=== PATIENT | female | born 1945 | race African-American/Black ===

== ENCOUNTER 2021-07-18 17:15 | Emergency (ER) | payer OTHER ==
--- OUTSIDE RECORDS SUMMARY | 2021-07-18 17:18 | XMS REPORT | Continuity of Care Document ---
:1945 Author Organization [facility] t Address [address] Azar [address] [place] [address] Care Team Providers Name Role Phone Unavailable Unavailable Unavailable Payers Payer Name Policy Type Policy Number Effective Date Expiration Date S [facility] [id number] 2021 (MEDICARE 00:00:00 REPLACEMENT HMO) Problems This patient has no known problems. Allergies, Adverse Reactions, Alerts This patient has no known allergies or adverse reactions. Medications This patient has no known medications. Procedures This patient has no known procedures. Encounters Start End Encounter Admission Attending Care Care Encounter Source Date/Time Date/Time Type Type Clinicians Facility Department ID 2021-05-19 2021-05-19 Outpatient [facility] [id number] [facility] 12:01:00 12:01:00 1207 [facility] Results This patient has no known results.
[2021-07-18] MEDS ORDERED: NA CHLORIDE 0.9% 500 ML ONE (18:13)
[2021-07-18 18:22] LABS: Urine Blood Negative (Negative); Urine Glucose Negative (Negative); Urine Protein Negative (Negative); Urine Specific Gravity >=1.030 (1.005-1.030); Urine pH 5.5 (5.0-7.0)
[2021-07-18 18:27] LABS: Absolute Lymphocytes (CBC) 1.2 K/uL (0.7-4.9); Lymphocytes % 16.4 % (15.3-44.8); MPV 8.2 fL (7.6-11.3)
[2021-07-18 18:44] LABS: Urine Bacteria <20 /HPF (<20); Urine Mucus 1+ /HPF (NONE SEEN); Urine RBC <5 /HPF (NONE SEEN)
[2021-07-18 18:45] LABS: ALT/SGPT 25 U/L (12-78); AST/SGOT 14 U/L (15-37); Albumin 3.5 g/dL (3.4-5.0); Alkaline Phosphatase 112 U/L (45-117); BUN Blood Urea Nitrogen 22 mg/dL (7-18); Bicarbonate 27 mmol/L (21-32); Bilirubin Direct < 0.1 mg/dL (0-0.2); Bilirubin Total 0.3 mg/dL (0.2-1.0); Glucose Level 189 mg/dL (74-106); Lipase 55 U/L (73-393); Protein, Total 7.7 g/dL (6.4-8.2); Sodium Level 139 mmol/L (136-145)
--- NOTE | 2021-07-18 19:35 | RAD REPORT ---
EXAM DESCRIPTION: CT - Abdomen Pelvis W Contrast - 07/18/2021 7:14 pm CLINICAL HISTORY: Abdominal pain/right groin pain COMPARISON: none. TECHNIQUE: Computed axial tomography of the abdomen pelvis was obtained. 100 cc Isovue-300 was admin istered intravenously. Oral contrast was not requested which limits evaluation of bowel. All CT scans are performed using dose optimization technique as appropriate and may include automated exposure control or mA/KV adjustment according to patient size. FINDINGS: Fatty liver. Small hepatic cysts. The spleen, pancreas, adrenals and left kidney are unremarkable. 27 millimeter right renal cyst There is no evidence of diverticulitis. Done stasis rectus abdominis muscles 7.3 centimeters. Small umbilical hernia. Hysterectomy. No adnexal mass. Inguinal hernia is not seen IMPRESSION: No acute abnormality is displayed.
[2021-07-18] MEDS ORDERED: KETOROLAC 30 MG/ML INJ ONE (19:58)
--- NOTE | 2021-07-18 20:14 | EDPHYS ---
Physician Documentation [facility] Name: Adore Padilla Age: 76 yrs Sex: Female : 1945 Arrival Date: 07/18/2021 Time: 17:22 Bed 19 Private MD: ED Physician Michele Franco HPI: 07/18 18:05 This 76 yrs old Black Female presents to ER via EMS with complaints of Pain With cp Urination. 18:05 The patient presents with urinary symptoms, frequency. cp 18:05 Onset: The symptoms/episode began/occurred today. Associated signs and symptoms: cp Pertinent positives: pain to right hip right groin, Pertinent negatives: dysuria, fever, hematuria, vomiting. Severity of symptoms: in the emergency department the symptoms are unchanged, despite home interventions. Family reported patient is altered to EMS. Historical: - Allergies: 17:23 No Known Allergies; mazariegos - Home Meds: 17:23 Unable to obtain [Active]; mazariegos - Immunization history:: Adult Immunizations up to date. - Social history:: Smoking status: Patient denies any tobacco usage or history of. ROS: 18:10 : Positive for urinary frequency, Negative for burning with urination. cp 18:10 Constitutional: Negative for body aches, chills, fever, poor PO intake. cp 18:10 Respiratory: Negative for cough, shortness of breath, wheezing. 18:10 Abdomen/GI: Negative for abdominal pain. 18:10 Back: Negative for pain at rest, pain with movement. 18:10 MS/extremity: Positive for pain, of the right groin, Negative for injury or acute deformity, decreased range of motion, paresthesias. 18:10 Neuro: Negative for altered mental status, headache, weakness. 18:10 All other systems are negative. Exam: 18:15 Constitutional: The patient appears in no acute distress, alert, awake, cp non-diaphoretic, non-toxic, well developed, well nourished, obese. 18:15 Head/Face: Normocephalic, atraumatic. cp 18:15 Eyes: Periorbital structures: appear normal, Conjunctiva: normal, no exudate, no cp injection, Sclera: no appreciated abnormality, Lids and lashes: appear normal, bilaterally. 18:15 ENT: External ear(s): are unremarkable, Nose: is normal, Mouth: Lips: moist, Oral cp mucosa: moist, Posterior pharynx: Airway: no evidence of obstruction, patent. 18:15 Chest/axilla: Inspection: normal. 18:15 Cardiovascular: Rate: tachycardic, Rhythm: regular, Edema: is not appreciated, JVD: is not appreciated. 18:15 Respiratory: the patient does not display signs of respiratory distress, Respirations: normal, no use of accessory muscles, no retractions, labored breathing, is not present, Breath sounds: are clear throughout, no decreased breath sounds. 18:15 Abdomen/GI: Inspection: abdomen appears normal, Bowel sounds: active, all quadrants, Palpation: soft, in all quadrants, nontender, in all quadrants. 18:15 Back: pain, is absent, ROM is normal. 18:15 Musculoskeletal/extremity: Extremities: grossly normal except: noted in the right groin and right hip: pain, tenderness, There is no evidence of decreased ROM, deformity, swelling, ROM: full passive range of motion, in the right hip, Perfusion: the extremity is normally perfused throughout, Calf tenderness, is absent, the right leg Sensation intact. 18:15 Neuro: Orientation: to person, place \T\ time. Mentation: is normal, Motor: moves all fours, strength is normal, Sensation: is normal. 18:57 ECG was reviewed by the Attending Physician. Vital Signs: 17:22 BP 191 / 101; Pulse 112; Resp 18; Temp 97.9(O); Pulse Ox 100% on R/A; Weight 81.65 kg; mazariegos Height 5 ft. 2 in. (157.48 cm); 20:00 BP 160 / 78; Pulse 78; Resp 16; Temp 97.5; Pulse Ox 97% on R/A; Pain 0/10; meño 20:49 BP 162 / 80; Pulse 76; Resp 16; Temp 97.2; Pulse Ox 99% on R/A; Pain 0/10; meño 17:22 Body Mass Index 32.92 (81.65 kg, 157.48 cm) mazariegos MDM: 17:54 Patient medically screened. cp 18:30 Differential diagnosis: appendicitis, Neoplasm nonspecific abdominal pain, ovarian cp cyst, urinary tract infection, colitis, kidney stone, hip fracture. 07/18 18:00 Order name: Basic Metabolic Panel; Complete Time: 18:56 cp 07/18 18:56 Interpretation: Normal except: GLUC 189; BUN 22; GFR 51. cp 02/ 18:00 Order name: CBC with Diff; Complete Time: 18:40 cp 02/ 18:40 Interpretation: Normal except: RBC 4.90; HGB 11.7; MCV 75.5; MCH 23.9; MCHC 31.6; RDW cp 15.6. 02/ 18:00 Order name: Hepatic Function; Complete Time: 18:56 cp 02 18:57 Interpretation: Normal except: AST 14; GLOB 4.2; A/G 0.8. cp 02/ 18:00 Order name: Lipase; Complete Time: 18:56 cp 02 18:00 Order name: Urine Microscopic Only; Complete Time: 18:56 cp 02 18:22 Order name: Urine Dipstick-Ancillary; Complete Time: 18:40 EDMS 02/ 18:00 Order name: IV Saline Lock; Complete Time: 18:23 cp 07/18 18:00 Order name: Labs collected and sent; Complete Time: 18:23 cp 07/18 18:00 Order name: Urine Dipstick-Ancillary (obtain specimen); Complete Time: 18:23 cp 02 18:02 Order name: EKG; Complete Time: 18:02 cp 02/ 18:41 Order name: CT Abd/Pelvis - IV Contrast Only; Complete Time: 20:08 cp 02/ 20:08 Interpretation: Report reviewed. cp 02/ 18:02 Order name: EKG - Nurse/Tech; Complete Time: 19:06 cp 02 19:54 Order name: Vital Signs; Complete Time: 19:59 cp EC:57 Rate is 106 beats/min. Rhythm is regular. [place] interval is normal. QRS interval is cp normal. QT interval is normal. Interpreted by me. Reviewed by me. Administered Medications: 18:22 Drug: NS 0.9% 250 ml Route: IV; Rate: 125 ml/hr; Site: right antecubital; mazariegos 20:49 Follow up: IV Status: Completed infusion; IV Intake: 250ml meño 18:23 Drug: NS 0.9% 250 ml Route: IV; Rate: bolus; Site: right antecubital; mazariegos 19:59 Drug: Ketorolac 15 mg Route: IVP; Site: right antecubital; meño 20:48 Follow up: Response: No adverse reaction meño Disposition: 07/19 06:55 Co-signature as Attending Physician, Michele Franco MD. rn Disposition Summary: 07/18/21 20:14 Discharge Ordered Location: Home cp Problem: new cp Symptoms: have improved cp Condition: Stable cp Diagnosis - Hyperglycemia, unspecified cp - Pain in right hip cp Followup: cp - With: Private Physician - When: 2 - 3 days - Reason: Recheck today's complaints Discharge Instructions: - Discharge Summary Sheet cp - Hyperglycemia cp - Hip Pain cp Forms: - Medication Reconciliation Form cp - Thank You Letter cp - Antibiotic Education cp - Prescription Opioid Use cp Prescriptions: - Mobic 7.5 mg Oral Tablet - take 1 tablet by ORAL route once daily take with food; 20 tablet; Refills: 0, cp Product Selection Permitted Signatures: Dispatcher [employer] EDMichele Borja MD MD rn Page, Corey, PA PA cp Elizabeth Jacques RN RN bo Au-Stager, Heather RN CHELLE mazariegos
--- NOTE | 2021-07-18 20:14 | ER ---
Nurse's Notes [facility] Name: Adore Padilla Age: 76 yrs Sex: Female : 1945 Arrival Date: 07/18/2021 Time: 17:22 Bed 19 Private MD: Diagnosis: Hyperglycemia, unspecified;Pain in right hip Presentation: 07/18 17:22 Chief complaint: Patient states: pain with urination and alter mental status. mazariegos Coronavirus screen: Vaccine status: Patient reports receiving the 2nd dose of the covid vaccine. Ebola Screen: Patient denies travel to an Ebola-affected area in the 21 days before illness onset. Initial Sepsis Screen: Does the patient meet any 2 criteria? No. Patient's initial sepsis screen is negative. Does the patient have a suspected source of infection? No. Patient's initial sepsis screen is negative. Risk Assessment: Do you want to hurt yourself or someone else? Patient reports no desire to harm self or others. Onset of symptoms was July 18, 2021. 17:22 Method Of Arrival: EMS: [facility] mazariegos 17:22 Acuity: KEYONNA 3 mazariegos Triage Assessment: 17:23 General: Appears in no apparent distress. Behavior is calm, cooperative. Pain: Denies mazariegos pain. Historical: - Allergies: 17:23 No Known Allergies; mazariegos - Home Meds: 17:23 Unable to obtain [Active]; mazariegos - Immunization history:: Adult Immunizations up to date. - Social history:: Smoking status: Patient denies any tobacco usage or history of. Screenin:24 Abuse screen: Denies threats or abuse. Denies injuries from another. Nutritional mazariegos screening: No deficits noted. Tuberculosis screening: No symptoms or risk factors identified. Fall Risk None identified. Assessment: 17:24 General: Appears in no apparent distress. Pain: Denies pain. Neuro:. : Reports mazariegos burning with urination. 19:06 Reassessment: I recv'd report on the pt in room 19. She is AAOx3 and reports she "feels meño fine". She was taken to CT, via w/c at 1900. Her brother is at bedside. 19:22 General: The pt has returned from CT. . meño 20:00 General: The pt reports that she was "never confused" and that her son called her from meño dialysis and she believes he was confused. She is in NAD and AAOx3. . Vital Signs: 17:22 BP 191 / 101; Pulse 112; Resp 18; Temp 97.9(O); Pulse Ox 100% on R/A; Weight 81.65 kg; mazariegos Height 5 ft. 2 in. (157.48 cm); 20:00 BP 160 / 78; Pulse 78; Resp 16; Temp 97.5; Pulse Ox 97% on R/A; Pain 0/10; meño 20:49 BP 162 / 80; Pulse 76; Resp 16; Temp 97.2; Pulse Ox 99% on R/A; Pain 0/10; meño 17:22 Body Mass Index 32.92 (81.65 kg, 157.48 cm) mazariegos ED Course: 17:22 Patient arrived in ED. mazariegos 17:23 Triage completed. mazariegos 17:23 Arm band placed on. mazariegos 17:24 Patient has correct armband on for positive identification. Bed in low position. mazariegos 17:24 No provider procedures requiring assistance completed. mazariegos 17:50 Alex Camp PA is PHCP. cp 17:50 Michele Franco MD is Attending Physician. cp 18:23 Basic Metabolic Panel Sent. mazariegos 18:23 CBC with Diff Sent. mazariegos 18:23 Hepatic Function Sent. mazariegos 18:23 Lipase Sent. mazariegos 18:23 Urine Microscopic Only Sent. mazariegos 19:06 Elizabeth Jacques, RN is Primary Nurse. meño 19:06 Elizabeth Jacques, RN is Primary Nurse. meño 19:16 CT Abd/Pelvis - IV Contrast Only In Process Unspecified. EDMS 20:50 intact, bleeding controlled, No redness/swelling at site. Pressure dressing applied. meño Administered Medications: 18:22 Drug: NS 0.9% 250 ml Route: IV; Rate: 125 ml/hr; Site: right antecubital; mazariegos 20:49 Follow up: IV Status: Completed infusion; IV Intake: 250ml meño 18:23 Drug: NS 0.9% 250 ml Route: IV; Rate: bolus; Site: right antecubital; mazariegos 19:59 Drug: Ketorolac 15 mg Route: IVP; Site: right antecubital; meño 20:48 Follow up: Response: No adverse reaction meño Intake: 20:49 IV: 250ml; Total: 250ml. meño Outcome: 19:22 Condition: stable meño 20:14 Discharge ordered by . cp 20:50 Discharged to home via wheelchair, taken to waiting area, as she is waiting on her meño family and asked to wait there. 20:51 Discharge instructions given to patient, Instructed on discharge instructions, meño medication usage, pt has taken mobic before and is familiar with dosing Demonstrated understanding of instructions, follow-up care, medications, Prescriptions given X 1. 20:51 Patient left the ED. meño Signatures: Dispatcher [employer] EDMS Alex Camp PA PA cp O'Farrell, Brenda, RN RN meño Au-StagerAnaly RN RN mazariegos
[2021-07-18 20:58] VITALS: BP 162/80; TEMP 97.2; O2SAT 99
--- NOTE | 2021-07-20 11:34 | EKG ---
Test Date: 2021-07-18 Test Time: 18:49:39 Neuropsychology Division Chief: KATHIE MEASUREMENT RESULTS: Intervals: Rate: 103 NE: 164 QRSD: 78 QT: 362 QTc: 474 [place]: P: 75 NE: 164 QRS: 17 T: 9 INTERPRETIVE STATEMENTS: Sinus tachycardia Possible Left atrial enlargement Left ventricular hypertrophy Nonspecific T wave abnormality Abnormal ECG Compared to ECG 01/06/2011 07:12:49 T-wave abnormality now present Sinus rhythm no longer present Electronically Signed On 07-20-21 11:30:38 WIG DRESSER by Jose Amin
== END 2021-07-18 20:51 | disposition home or self-care (01) ==
LOC: ER 17:15
DX: M25.551 Pain in right hip (principal); R73.9 Hyperglycemia, unspecified
CPT/HCPCS: 36415; 74177; 80048; 80076; 81003; 81015; 83690; 85025; 93005; 96365; 96366; 96375; 99284; J7040; Q9967

== ENCOUNTER 2021-07-19 11:19 | Inpatient (IN) | payer MEDICARE, OTHER ==
--- OUTSIDE RECORDS SUMMARY | 2021-07-19 11:21 | XMS REPORT | Continuity of Care Document ---
:1945 Author Organization [facility] t Address [address] Azar [address] [place] [id number] Care Team Providers Name Role Phone Unavailable Unavailable Unavailable Payers Payer Name Policy Type Policy Number Effective Date Expiration Date S [facility] [id number] 2021 (MEDICARE 00:00:00 REPLACEMENT HMO) Problems This patient has no known problems. Allergies, Adverse Reactions, Alerts This patient has no known allergies or adverse reactions. Medications This patient has no known medications. Procedures This patient has no known procedures. Encounters Start End Encounter Admission Attending Care Care Encounter Source Date/Time Date/Time Type Type Clinicians Facility Department ID 2021-05-19 2021-05-19 Outpatient [facility] [id number] [facility] 12:01:00 12:01:00 1207 [facility] Results This patient has no known results.
[2021-07-19] MEDS ORDERED: NA CHLORIDE 0.9% 500 ML ONE (11:39)
[2021-07-19 11:57] LABS: Absolute Lymphocytes (CBC) 0.6 K/uL (0.7-4.9); Hematocrit 35.3 % (36.0-45.0); Lymphocytes % 12.2 % (15.3-44.8); MPV 8.3 fL (7.6-11.3)
[2021-07-19 12:08] LABS: Potassium 3.8 mmol/L (3.5-5.1)
--- NOTE | 2021-07-19 12:14 | RAD REPORT ---
EXAM DESCRIPTION: CT - Head Brain Wo Cont - 07/19/2021 12:07 pm CLINICAL HISTORY: CONFUSED Headache, drowsiness COMPARISON: No comparisons TECHNIQUE: All CT scans are performed using dose optimization technique as appropriate and may inclu de automated exposure control or mA/KV adjustment according to patient size. FINDINGS: No intracranial hemorrhage, hydrocephalus or extra-axial fluid collection.Significant dalton ventricular diminished density is seen presumably related to chronic microvascular ischemia.No areas of brain edema or evidence of midline shift. The paranasal sinuses and mastoids are clear. The calvarium is intact. IMPRESSION: No acute intracranial abnormality. Significant diminished density in the periventricular white matter favored to represent chronic micro vascular ischemia. However, nonemergent follow-up MRI brain with contrast would be advised for furthe r workup.
[2021-07-19 12:36] LABS: Troponin High Sensitivity 11.8 pg/mL (<58.9)
[2021-07-19] MEDS ORDERED: AMLODIPINE 10 MG TAB ONE (13:21)
--- NOTE | 2021-07-19 13:26 | ER ---
Nurse's Notes [facility] Name: Adore Padilla Age: 76 yrs Sex: Female : 1945 Arrival Date: 07/19/2021 Time: 11:22 Bed 5 Private MD: Diagnosis: Altered mental status, unspecified;Essential (primary) hypertension Presentation: 07/19 11:29 Chief complaint: EMS states: "she is here with the same reports as yesterday. she has jd3 been altered and more zoned out. family reported that she is not acting right. BP at her house was 220/120. BGL was 90. we started a 20 G to the left AC.". Coronavirus screen: At this time, the client does not indicate any symptoms associated with coronavirus-19. Ebola Screen: No symptoms or risks identified at this time. Initial Sepsis Screen: Does the patient meet any 2 criteria? No. Patient's initial sepsis screen is negative. Does the patient have a suspected source of infection? No. Patient's initial sepsis screen is negative. Risk Assessment: Do you want to hurt yourself or someone else? Patient reports no desire to harm self or others. Onset of symptoms was July 18, 2021. 11:29 Method Of Arrival: [facility]: [facility] jd3 11:29 Acuity: KEYONNA 2 jd3 Historical: - Allergies: 11:31 Lisinopril; jd3 - PMHx: 11:31 Hypertensive disorder; jd3 - Immunization history:: Adult Immunizations up to date, Client reports receiving the 2nd dose of the Covid vaccine, Flu vaccine is up to date. - Social history:: Smoking status: Patient denies any tobacco usage or history of. - Family history:: not pertinent. - Hospitalizations: : No recent hospitalization is reported. Screenin:32 Abuse screen: Denies threats or abuse. Nutritional screening: No deficits noted. jd3 Tuberculosis screening: No symptoms or risk factors identified. Fall Risk Ambulatory Aid- None/Bed Rest/Nurse Assist (0 pts). Gait- Normal/Bed Rest/Wheelchair (0 pts) Mental Status- Oriented to own ability (0 pts). Total Mcbride Fall Scale indicates No Risk (0-24 pts). Assessment: 11:33 General: Appears in no apparent distress. comfortable, Behavior is calm, cooperative, jd3 appropriate for age. Pain: Denies pain. Neuro: Level of Consciousness is awake, alert, confused, lethargic, Oriented to person. Cardiovascular: Denies chest pain, Capillary refill < 3 seconds Patient's skin is warm and dry. Respiratory: Airway is patent Respiratory effort is even, unlabored, Respiratory pattern is regular, symmetrical, Denies cough, shortness of breath. GI: No signs and/or symptoms were reported involving the gastrointestinal system. : No signs and/or symptoms were reported regarding the genitourinary system. EENT: No signs and/or symptoms were reported regarding the EENT system. Derm: Skin is intact, Skin is dry, Skin is normal, Skin temperature is warm. Musculoskeletal: Circulation, motion, and sensation intact. Range of motion: intact in all extremities. 12:59 Reassessment: No changes from previously documented assessment. Patient and/or family jd3 updated on plan of care and expected duration. Pain level reassessed. 14:47 Reassessment: No changes from previously documented assessment. Patient and/or family jd3 updated on plan of care and expected duration. Pain level reassessed. 15:56 Reassessment: Patient appears in no apparent distress at this time. No changes from jd3 previously documented assessment. Patient and/or family updated on plan of care and expected duration. Pain level reassessed. awaiting admission. 16:21 Reassessment: Patient appears in no apparent distress at this time. No changes from jd3 previously documented assessment. Patient and/or family updated on plan of care and expected duration. Pain level reassessed. report given to Kait CORBETT. Vital Signs: 11:29 BP 167 / 110; Pulse 94; Pulse Ox 100% on R/A; Pain 0/10; jw7 11:32 Resp 17 S; Temp 98.8(TE); Weight 81.65 kg (R); Height 5 ft. 2 in. (157.48 cm) (R); Pain jd3 0/10; 12:59 BP 193 / 90; Pulse 88; Resp 17 S; Pulse Ox 100% on R/A; jd3 14:47 BP 193 / 97; Pulse 97; Resp 18 S; Pulse Ox 97% on R/A; jd3 15:57 BP 194 / 95; Pulse 98; Resp 19 S; Pulse Ox 100% on R/A; jd3 11:32 Body Mass Index 32.92 (81.65 kg, 157.48 cm) jd3 ED Course: 11:22 Patient arrived in ED. eb 11:24 Doe Agarwal NP is PHCP. pm1 11:24 Michele Franco MD is Attending Physician. pm1 11:29 Natanael Massey RN is Primary Nurse. jd3 11:31 Triage completed. jd3 11:32 Arm band placed on. jd3 11:32 Patient has correct armband on for positive identification. Bed in low position. Call jd3 light in reach. Side rails up X2. Adult w/ patient. cardiac monitor technician on. Pulse ox on. NIBP on. 11:34 Maintain EMS IV. Dressing intact. Good blood return noted. Site clean \\T\\ dry. Gauge \\T\\ jerson 3 site: 20 G left AC. 11:51 EKG done, by ED staff, reviewed by Michele Franco MD. jw7 12:07 CT Head Brain wo Cont In Process Unspecified. EDMS 13:25 Prince Maloney MD is Hospitalizing Provider. rn 16:21 No provider procedures requiring assistance completed. Patient admitted, IV remains in jd3 place. Administered Medications: 11:41 Drug: NS 0.9% 500 ml Route: IV; Rate: bolus; Site: left antecubital; ke1 13:08 Follow up: IV Status: Completed infusion ke1 13:24 Drug: Norvasc (amlodipine) 10 mg Route: PO; jd3 14:20 Follow up: Response: No adverse reaction jd3 15:56 Drug: cloNIDine 0.2 mg Route: PO; jd3 16:22 Follow up: Response: No adverse reaction jd3 Outcome: 13:26 Decision to Hospitalize by Provider. rn 16:21 Admitted to Tele accompanied by tech, via wheelchair, room 202, with chart, Report jd3 called to Kait CORBETT 16:21 Condition: stable 16:21 Instructed on the need for admit, Demonstrated understanding of instructions. 16:25 Patient left the ED. jd3 Signatures: Dispatcher [employer] EDMS Michele Franco MD MD rn Marinas, Patrick, NP VESSEL SCRAPPER pm1 Natanael Massey RN RN jd3 Junie Ly Jodi jw7 David Alegre RN RN ke1 Corrections: (The following items were deleted from the chart) 11:32 11:31 Allergies: No Known Allergies; jd3 jd3 14:47 12:59 Reassessment: No changes from previously documented assessment. Patient and/or jd3 family updated on plan of care and expected duration. Pain level reassessed. Patient is alert, oriented x 3, equal unlabored respirations, skin warm/dry/pink. jd3
--- NOTE | 2021-07-19 13:26 | EDPHYS ---
Physician Documentation [facility] Name: Adore Padilla Age: 76 yrs Sex: Female : 1945 Arrival Date: 07/19/2021 Time: 11:22 Bed 5 Private MD: ED Physician Michele Franco HPI: 07/19 13:21 This 76 yrs old Black Female presents to ER via EMS with complaints of Confusion and rn altered mental status. 13:21 The patient presents with confusion. The patient presents with disorientation. Onset: rn The symptoms/episode began/occurred yesterday. Possible causes: unknown. Associated signs and symptoms: Pertinent positives: confusion, Pertinent negatives: abdominal pain, chest pain, seizure. Current symptoms: In the emergency department the patient's symptoms are unchanged from the initial presentation. The patient has not experienced similar symptoms in the past. The patient has been recently seen at the [facility] Emergency Department. Patient and family report altered mental status. Seen here last night and discharged after negative work-up. Patient denies any focal pain. Son states seems confused and disoriented. Reports uncontrolled blood pressure, takes amlodipine and metoprolol but has not taken it today. Son states seemed better last night after discharged but then got worse again. Son also reports seems to have difficulty walking as well. Patient reports chronic right lower extremity problems and radiculopathy affecting that leg.. Historical: - Allergies: 11:31 Lisinopril; jd3 - PMHx: 11:31 Hypertensive disorder; jd3 - Immunization history:: Adult Immunizations up to date, Client reports receiving the 2nd dose of the Covid vaccine, Flu vaccine is up to date. - Social history:: Smoking status: Patient denies any tobacco usage or history of. - Family history:: not pertinent. - Hospitalizations: : No recent hospitalization is reported. ROS: 13:21 Constitutional: Negative for fever, chills, and weight loss, Eyes: Negative for injury, rn pain, redness, and discharge, Neck: Negative for injury, pain, and swelling, Cardiovascular: Negative for chest pain, palpitations, and edema, Respiratory: Negative for shortness of breath, cough, wheezing, and pleuritic chest pain, Abdomen/GI: Negative for abdominal pain, nausea, vomiting, diarrhea, and constipation, Back: Negative for injury and pain, MS/Extremity: Negative for injury and deformity, Skin: Negative for injury, rash, and discoloration, Neuro: Negative for headache, weakness, numbness, tingling, and seizure. Exam: 13:21 Constitutional: This is a well developed, well nourished patient who is awake, alert, rn and in no acute distress. Head/Face: Normocephalic, atraumatic. Eyes: Periorbital areas with no swelling, redness, or edema. ENT: Dry mucous membranes Cardiovascular: Regular rate and rhythm. No pulse deficits. Respiratory: Speaking full sentences, unlabored. No increased work of breathing, no retractions or nasal flaring. Abdomen/GI: Soft, nontender, nondistended Skin: Warm, dry, no cellulitis MS/ Extremity: Pulses equal, no cyanosis. Neuro: Awake and alert, GCS 15, oriented to person, and time but not place.. Cranial nerves II-XII grossly intact. Motor strength 4/5 in all extremities. Sensory grossly intact. Vital Signs: 11:29 BP 167 / 110; Pulse 94; Pulse Ox 100% on R/A; Pain 0/10; jw7 11:32 Resp 17 S; Temp 98.8(TE); Weight 81.65 kg (R); Height 5 ft. 2 in. (157.48 cm) (R); Pain jd3 0/10; 12:59 BP 193 / 90; Pulse 88; Resp 17 S; Pulse Ox 100% on R/A; jd3 14:47 BP 193 / 97; Pulse 97; Resp 18 S; Pulse Ox 97% on R/A; jd3 15:57 BP 194 / 95; Pulse 98; Resp 19 S; Pulse Ox 100% on R/A; jd3 11:32 Body Mass Index 32.92 (81.65 kg, 157.48 cm) jd3 MDM: 11:27 Patient medically screened. rn 13:21 Differential Diagnosis: CVA, electrolyte abnormality, hypoglycemia, intracranial bleed, rn UTI, volume depletion. Data reviewed: vital signs, nurses notes, old medical records, lab test result(s), EKG, radiologic studies, CT scan, and as a result, I will admit patient. Counseling: I had a detailed discussion with the patient and/or guardian regarding: the historical points, exam findings, and any diagnostic results supporting the discharge/admit diagnosis, lab results, radiology results, the need for further work-up and treatment in the hospital. Response to treatment: the patient's symptoms have mildly improved after treatment, and as a result, I will admit patient. Admission orders: after a detailed discussion of the patient's condition and case, the admit orders are written by me. ED course: Patient still not back to baseline. No acute findings other than extremely high blood pressure. CT head shows microvascular changes but no acute infarct. Symptoms now present for 2 days. Urine as well as CT abdomen pelvis negative yesterday.. 07/19 11:28 Order name: CBC with Diff; Complete Time: 12:17 rn 07/19 11:28 Order name: Basic Metabolic Panel; Complete Time: 12:17 rn 07/19 11:28 Order name: Urine Microscopic Only rn 07/19 11:28 Order name: Procalcitonin; Complete Time: 12:47 rn 07/19 11:31 Order name: SARS-COV-2 RT PCR (Document "Date of Onset" if Symptomatic); Complete Time: rn 14:03 07/19 11:28 Order name: CT Head Brain wo Cont; Complete Time: 12:17 rn 07/19 11:28 Order name: IV Start; Complete Time: 11:34 rn 07/19 11:28 Order name: EKG; Complete Time: 11:29 rn 07/19 11:33 Order name: Troponin High Sensitivity rn 07/19 11:33 Order name: BNP rn 07/19 11:28 Order name: EKG - Nurse/Tech; Complete Time: 11:43 rn Administered Medications: 11:41 Drug: NS 0.9% 500 ml Route: IV; Rate: bolus; Site: left antecubital; ke1 13:08 Follow up: IV Status: Completed infusion ke1 13:24 Drug: Norvasc (amlodipine) 10 mg Route: PO; jd3 14:20 Follow up: Response: No adverse reaction jd3 15:56 Drug: cloNIDine 0.2 mg Route: PO; jd3 16:22 Follow up: Response: No adverse reaction jd3 Disposition Summary: 07/19/21 13:26 Hospitalization Ordered Hospitalization Status: Observation rn Provider: Prince Haider rn Location: Telemetry/MedSurg (observation) rn Condition: Stable rn Problem: new rn Symptoms: are unchanged rn Bed/Room Type: Standard rn Room Assignment: 202(07/19/21 15:35) eb Diagnosis - Altered mental status, unspecified rn - Essential (primary) hypertension rn Forms: - Medication Reconciliation Form rn - SBAR form rn Signatures: Dispatcher [employer] Michele Knowles MD MD rn Davies, Jonathon RN RN Junie Sosa Kouassi, RN RN ke1 Corrections: (The following items were deleted from the chart) 11:32 11:31 Allergies: No Known Allergies; jd3 jd3 15:35 13:26 rn eb
--- NOTE | 2021-07-19 15:16 | P.HP ---
Certification for Inpatient Patient admitted to: Observation With expected LOS: <2 Midnights Patient will require the following post-hospital care: None Practitioner: I am a practitioner with admitting privileges, knowledge of patient current condition, hospital course, and medical plan of care. Services: Services provided to patient in accordance with Admission requirements found in Title 42 Section 412.3 of the Code of Federal Regulations <Jere Rocha - Last Filed: 07/19/21 15:16> Patient History Date of Service: 07/19/21 Reason for admission: AMS, hypertensive emergency History of Present Illness: Ms. Padilla is a 76 yo F with HTN, HLD who presents with one day of AMS. Yesterday, her son brought her to the ED last night because he was speaking to her and she wasn't responding to him. He says she was still alert during this time, did not lose consciousness or fall. She was discharged home after a negative workup. He says she returned to baseline that evening, but was worse this morning. Son says she seems for fatigued than usual. At bedside, she is alert and oriented, able to answer questions. No focal neurological deficits. Denies fever, nausea, vomiting, urinary frequency. BP in the ED 193/97. She received amlodipine, toradol, IV fluids. She reports worsening chronic pain and tingling in her right hip. Her son says she has had more difficulty walking due to the pain. She has been seen by a neurologist for the pain in the past. CT Head IMPRESSION: No acute intracranial abnormality. Significant diminished density in the periventricular white matter favored to represent chronic microvascular ischemia. However, nonemergent follow-up MRI brain with contrast would be advised for further workup. - Past Medical/Surgical History -: HTN -: HLD -: radiculopathy in R leg Past Surgical History: Patient denies surgical history - Family History Family History: Reviewed- Non-Contributory - Social History Smoking Status: Never smoker Alcohol use: No CD- Drugs: No Caffeine use: Yes Place of Residence: Home <Jere Rocha - Last Filed: 07/19/21 15:16> Date of Service: 07/19/21 <Luigi Cooper - Last Filed: 07/26/21 11:47> Allergies lisinopril Allergy (Verified 08/25/15 11:14) Itching Home Medications: Amlodipine [Norvasc] 10 mg PO DAILY 05/26/15 Citalopram Hydrobromide [Celexa] 20 mg PO DAILY 05/26/15 Lovastatin 10 mg PO DAILY 05/26/15 Meloxicam [Mobic] 15 mg PO DAILY 05/26/15 Metoprolol Tartrate [Lopressor] 100 mg PO DAILY 05/26/15 hydroCHLOROthiazide [Hydrochlorothiazide] 25 mg PO DAILY 05/26/15 Gabapentin 300 mg PO BEDTIME 07/21/21 Gabapentin 600 mg PO DAILY 07/21/21 Review of Systems 10-point ROS is otherwise unremarkable General: Unremarkable Eyes: Unremarkable ENT: Unremarkable Respiratory: Unremarkable Cardiovascular: Unremarkable Gastrointestinal: Unremarkable Genitourinary: Unremarkable Musculoskeletal: Leg Pain Integumentary: Unremarkable Neurological: Confusion Lymphatics: Unremarkable <Jere Rocha - Last Filed: 07/19/21 15:16> Physical Examination - Physical Exam General: Alert, In no apparent distress HEENT: Atraumatic, PERRLA, Mucous membr. moist/pink, EOMI, Sclerae nonicteric Neck: Supple, 2+ carotid pulse no bruit, No LAD, Without JVD or thyroid abnormality Respiratory: Clear to auscultation bilaterally, Normal air movement Cardiovascular: Regular rate/rhythm, Normal S1 S2 Gastrointestinal: Normal bowel sounds, No tenderness Musculoskeletal: Tenderness Integumentary: No rashes Neurological: Normal speech, Normal strength at 5/5 x4 extr, Normal tone, Normal affect Lymphatics: No axilla or inguinal lymphadenopathy - Studies Laboratory Data (last 24 hrs) 07/19/21 11:38: Sodium 138, Potassium 3.8, BUN 21 H, Creatinine 0.94, Glucose 147 H 07/19/21 11:38: WBC 5.30 D, Hgb 11.0 L, Hct 35.3 L, Plt Count 264 <Jere Rocha - Last Filed: 07/19/21 15:16> Assessment and Plan - Problems (Diagnosis) (1) Hypertensive emergency Current Visit: Yes Status: Acute (2) AMS (altered mental status) Current Visit: Yes Status: Acute (3) HLD (hyperlipidemia) Current Visit: Yes Status: Chronic Qualifiers: Hyperlipidemia type: unspecified Qualified Code(s): E78.5 - Hyperlipidemia, unspecified - Plan continue amlodipine daily, obtain and reconcile home medications continue IV hydralazine PRN for BP spikes anemia workup pending sliding scale insulin and accuchecks, A1c pending physical therapy consulted will consider MRI in the AM if no improvement in symptoms DVT ppx Discharge Plan: Home Plan to discharge in: 24 Hours - Advance Directives Does patient have a Living Will: No Does patient have a Durable POA for Healthcare: No - Code Status/Comfort Care Code Status Assessed: Yes (full code ) Critical Care: No Time Spent Managing Pts Care (In Minutes): 70 <Jere Rocha - Last Filed: 07/19/21 15:16> - Problems (Diagnosis) (1) Acute left arterial ischemic stroke, ICA (internal carotid artery) Current Visit: Yes Status: Acute (2) Broca's aphasia Current Visit: Yes Status: Acute (3) Dysphagia Current Visit: Yes Status: Acute <Luigi Cooper - Last Filed: 07/26/21 11:47> Date of Service: 07/20/21 Subjective: HPI as mentioned above Physical Examination: Vitals: Afebrile vital signs are stable Physical exam: Cardiovascular: Within normal limits. Lungs: Within normal limits Abdomen: Within normal limits Neuro: Awake, alert, oriented to person place and time Assessment: 1. CVA Plan: 1. Continue with current plan of care as mentioned above <Luigi Cooper - Last Filed: 07/26/21 11:47>
[2021-07-19] MEDS ORDERED: cloNIDine HCL 0.1 MG TAB ONE (15:54)
[2021-07-19] MEDS: INSULIN -REGULAR HUMAN 50 UNIT/0.5 ML ML SQ SCH ×2 (17:00→21:00)
[2021-07-19] MEDS ORDERED: ONDANSETRON 4 MG/2 ML VIAL IV PRN (17:00)
[2021-07-19] MEDS ORDERED: ACETAMINOPHEN 500 MG TAB PO PRN (17:00)
[2021-07-19 17:20] VITALS: BMI 4180.7
[2021-07-19] MEDS: HYDRALAZINE HCL 20 MG/ML VIAL IV PRN (17:40)
[2021-07-20] MEDS: HYDRALAZINE HCL 20 MG/ML VIAL IV PRN ×2 (02:18→09:56)
[2021-07-20 05:52] LABS: Absolute Lymphocytes (CBC) 0.8 K/uL (0.7-4.9); Lymphocytes % 9.5 % (15.3-44.8); MPV 8.3 fL (7.6-11.3); RBC Red Blood Cell Count 4.51 M/uL (3.86-4.86)
[2021-07-20 06:25] LABS: Albumin 3.2 g/dL (3.4-5.0); Bilirubin Total 0.4 mg/dL (0.2-1.0); Ferritin 64.3 ng/mL (8-388); Phosphorus 2.8 mg/dL (2.5-4.9); Potassium 3.8 mmol/L (3.5-5.1); Protein, Total 7.1 g/dL (6.4-8.2); Thyroid Stimulating Hormone 1.14 uIU/mL (0.360-3.740)
[2021-07-20] MEDS: INSULIN -REGULAR HUMAN 50 UNIT/0.5 ML ML SQ SCH ×4 (07:30→21:00)
[2021-07-20] MEDS ORDERED: POTASSIUM CL SA 10 MEQ TAB PO ONE (09:00)
[2021-07-20] MEDS: ENOXAPARIN 40 MG/0.4 ML SQ SCH (09:54)
[2021-07-20] MEDS: AMLODIPINE 10 MG TAB PO SCH (09:54)
[2021-07-20] MEDS ORDERED: METOPROLOL TAR 50 MG TAB PO ONE (11:10)
--- NOTE | 2021-07-20 11:33 | EKG ---
Test Date: 2021-07-19 Test Time: 11:46:48 Assistant Account Executive: SHELBIE MEASUREMENT RESULTS: Intervals: Rate: 85 MO: 158 QRSD: 80 QT: 384 QTc: 456 [place]: P: 73 MO: 158 QRS: 57 T: 11 INTERPRETIVE STATEMENTS: Normal sinus rhythm Cannot rule out Anterior infarct, age undetermined Abnormal ECG Compared to ECG 01/06/2011 07:12:49 Myocardial infarct finding now present Left ventricular hypertrophy no longer present Electronically Signed On 07-20-21 11:30:33 [employer] OFFIC[employer] by Jose Amin
[2021-07-20] MEDS ORDERED: NA CHLORIDE 0.9% 1,000 ML ONE (12:08)
[2021-07-20] MEDS ORDERED: NA CHLORIDE 0.9% 500 ML ONE (12:08)
[2021-07-20] MEDS ORDERED: NA CHLORIDE 0.9% 500 ML IV ONE (12:23)
[2021-07-20] MEDS ORDERED: LORazepam 2 MG/ML VIAL IV PRN (14:18)
[2021-07-20] MEDS ORDERED: LORazepam 2 MG/ML VIAL ONE (14:24)
[2021-07-20 14:25] LABS: Magnesium 1.9
[2021-07-20] MEDS: NA CHLORIDE 0.9% 1,000 ML IV SCH (14:25)
--- NOTE | 2021-07-20 15:28 | RAD REPORT ---
EXAM DESCRIPTION: MRI - Brain Wo Cont - 07/20/2021 3:15 pm CLINICAL HISTORY: Alteration of consciousness/confusion/ right-sided weakness COMPARISON: Head CT July 19, 2021 TECHNIQUE: Axial, sagittal, and coronal magnetic resonance images of the brain were obtained. FINDINGS: Moderate to marked signal within periventricular, deep and subcortical white matter probab ly ischemic changes secondary to small vessel disease Diffusion-weighted/ADC mapping demonstrates an 8 centimeter acute infarction the left frontal lobe. N o shift of midline structures. The ventricles are normal caliber. An extra-axial fluid collection is not noted. Fluid within the sinuses/mastoids is not seen IMPRESSION: 8 centimeter acute infarction left frontal lobe Dr. Cooper notified
--- NOTE | 2021-07-20 15:28 | RAD REPORT ---
EXAM DESCRIPTION: MRI - MRA Head Wo Cont - 07/20/2021 3:15 pm CLINICAL HISTORY: Right-sided weakness COMPARISON: None. TECHNIQUE: Magnetic resonance angiogram was performed. 3D MIPS reconstruction performed FINDINGS: Some images are degraded by patient motion artifact. This likely is the cause of diminishe d signal within the vertebral arteries. Diminished signal throughout left anterior cerebral artery. The remainder of the anterior cerebral, middle cerebral, posterior cerebral, distal internal carotid and basilar arteries do not demonstrate a significant stenosis. An aneurysm is not displayed. IMPRESSION: Diminished signal throughout the left anterior cerebral artery likely acute
[2021-07-20] MEDS ORDERED: ASPIRIN EC 325 MG TABLET PO ONE (16:00)
[2021-07-20] MEDS ORDERED: CLOPIDOGREL 75 MG TABLET PO ONE (16:00)
--- NOTE | 2021-07-20 21:50 | RAD REPORT ---
EXAM DESCRIPTION: USCarotid Artery Bilateral07/20/2021 9:30 pm CLINICAL HISTORY: cva COMPARISON: None FINDINGS: The velocity of the right internal carotid artery equals 123 centimeters/second cm/sec. Th e right ICA/CCA ratio 1.5 The velocity of the left internal carotid artery equals 90 cm/sec. The left ICA/CCA ratio 0.7 Mild plaque is present within the carotid arteries. The vertebral arteries demonstrate antegrade flow IMPRESSION: Mild plaque within the carotid arteries without evidence of a hemodynamically significan t stenosis NASCET criteria used. Mild 0-49% stenosis Moderate 50-69% stenosis Severe 70-99% stenosis
[2021-07-20] MEDS: ATORVASTATIN 80 MG TAB PO SCH (21:56)
[2021-07-21] MEDS: NA CHLORIDE 0.9% 1,000 ML IV SCH ×2 (05:58→17:24)
[2021-07-21] MEDS: INSULIN -REGULAR HUMAN 50 UNIT/0.5 ML ML SQ SCH ×4 (07:30→21:00)
[2021-07-21] MEDS: CLOPIDOGREL 75 MG TABLET PO SCH ×2 (08:53→09:00)
[2021-07-21] MEDS: ENOXAPARIN 40 MG/0.4 ML SQ SCH (08:53)
[2021-07-21] MEDS: ASPIRIN EC 81 MG TAB PO SCH ×2 (08:53→09:00)
[2021-07-21] MEDS: AMLODIPINE 10 MG TAB PO SCH ×2 (08:53→09:00)
[2021-07-21] MEDS ORDERED: METOPROLOL TARTRATE 5 MG/5 ML INJ IV STA (11:23)
[2021-07-21] MEDS: HYDRALAZINE HCL 20 MG/ML VIAL IV PRN (13:48)
[2021-07-21] MEDS: METOPROLOL TAR 50 MG TAB PO SCH (17:55)
[2021-07-21] MEDS ORDERED: ACETAMINOPHEN 650MG/RECT SUPP PR PRN (18:18)
[2021-07-21] MEDS: ATORVASTATIN 80 MG TAB PO SCH (21:00)
[2021-07-22] MEDS: HYDRALAZINE HCL 20 MG/ML VIAL IV PRN ×3 (01:14→15:16)
[2021-07-22] MEDS: NA CHLORIDE 0.9% 1,000 ML IV SCH ×2 (05:00→18:20)
[2021-07-22] MEDS: METOPROLOL TAR 50 MG TAB PO SCH ×2 (05:50→17:11)
[2021-07-22] MEDS: INSULIN -REGULAR HUMAN 50 UNIT/0.5 ML ML SQ SCH ×4 (07:30→20:47)
[2021-07-22] MEDS: ASPIRIN EC 81 MG TAB PO SCH (09:00)
[2021-07-22] MEDS: CLOPIDOGREL 75 MG TABLET PO SCH (09:00)
[2021-07-22] MEDS: AMLODIPINE 10 MG TAB PO SCH (09:00)
[2021-07-22] MEDS: ENOXAPARIN 40 MG/0.4 ML SQ SCH (09:16)
--- NOTE | 2021-07-22 09:39 | ECHO ---
HEIGHT: 5 ft 6 in WEIGHT: 186 lb 8 oz DATE OF STUDY: 07/21/[address]: Luigi Cooper MD 2-DIMENSIONAL: YES M.MODE: YES DOPPLER: YES COLOR FLOW: YES TDS: NO PORTABLE: NO DEFINITY: NO BUBBLE STUDY: NO DIAGNOSIS: CEREBRAL VASCULAR ACCIDENT CARDIAC HISTORY: CATHERIZATION: NO SURGERY: NO PROSTHETIC VALVE: NO PACEMAKER: NO MEASUREMENTS (cm) DIASTOLIC (NORMALS) SYSTOLIC (NORMALS) IVSd 1.3 (0.6-1.2) LA Diam 3.6 (1.9-4.0) LVEF 73% LVIDd 4.6 (3.5-5.7) LVIDs 2.7 (2.0-3.5) %FS 42% LVPWd 1.3 (0.6-1.2) Ao Diam 2.5 (2.0-3.7) 2 DIMENSIONAL ASSESSMENT: RIGHT ATRIUM: NORMAL LEFT ATRIUM: NORMAL RIGHT VENTRICLE: NORMAL LEFT VENTRICLE: LEFT VENTRICULAR HYPERTROPHY TRICUSPID VALVE: NORMAL MITRAL VALVE: NORMAL PULMONIC VALVE: NORMAL AORTIC VALVE: NORMAL PERICARDIAL EFFUSION: NONE AORTIC ROOT: NORMAL LEFT VENTRICULAR WALL MOTION: NORMAL DOPPLER/COLOR FLOW: NORMAL COMMENTS: LEFT VENTRICULAR HYPERTROPHY. MILD CONCENTRIC LEFT VENTRICULAR EJECTION FRACTION 73%. NO WALL MOTION ABNORMALITY. NO THROMBUS OR VEGETATION. TECHNOLOGIST: Eli BOSTON
[2021-07-22] MEDS ORDERED: LABETALOL 20 MG/4ML SYRINGE IV ONE (17:00)
[2021-07-22] MEDS ORDERED: ASPIRIN 300 MG/SUPP PR ONE (17:00)
[2021-07-22] MEDS ORDERED: ASPIRIN 600 MG/SUPP PR ONE (17:00)
--- NOTE | 2021-07-22 18:02 | P.PN ---
Subjective Date of Service: 07/20/21 On exam patient with diffuse right-sided weakness. The family states that this has been this way since overnight. She actually was here the day prior with similar complaints. She has out of the window for any kind of tPA. MRI pending. Most likely left internal carotid artery distribution infarct. Review of Systems 10-point ROS is otherwise unremarkable Physical Examination - Vital Signs Temperature: 99.4 F Blood Pressure: 176/83 Pulse: 122 Respirations: 22 Pulse Ox (%): 98 - Physical Exam General: Alert, In no apparent distress, Oriented x3 Respiratory: Clear to auscultation bilaterally, Normal air movement Cardiovascular: Regular rate/rhythm, Normal S1 S2 Gastrointestinal: Normal bowel sounds, Soft and benign, Non-distended, No tenderness Musculoskeletal: No clubbing, No swelling, No tenderness Neurological: Abnormal gait, Abnormal speech (Aphasic-Broca's), Abnormal strength (Left-sided weakness), Abnormal cranial nerve function Lymphatics: No axilla or inguinal lymphadenopathy - Studies Medications List Reviewed: Yes Assessment & Plan - Problems (Diagnosis) (1) Acute left arterial ischemic stroke, ICA (internal carotid artery) Current Visit: Yes Status: Acute (2) Broca's aphasia Current Visit: Yes Status: Acute (3) Dysphagia Current Visit: Yes Status: Acute - Plan 1. MRI of the brain 2. Antiplatelet and statin therapy 3. Lipid profile 4. Physical therapy and speech therapy consultation 5. DVT prophylaxis 6. Neurochecks every 4 hours 7. Reassess stroke scale 8. GI and DVT prophylaxis Discharge Plan: Home Plan to discharge in: Greater than 2 days - Advance Directives Does patient have a Living Will: No Does patient have a Durable POA for Healthcare: No - Code Status/Comfort Care Code Status Assessed: Yes Code Status: Full Code Critical Care: No Time Spent Managing PTS Care (In Minutes): 45
--- NOTE | 2021-07-22 18:03 | P.PN ---
Date of Service: 07/22/21 Subjective Spoke with general surgery for PEG tube placement. I updated the children. Dr. Nair to place PEG tube in a.m. Review of Systems 10-point ROS is otherwise unremarkable Physical Examination - Vital Signs Reviewed - Physical Exam General: Aphasia Respiratory: Clear to auscultation bilaterally, Normal air movement Cardiovascular: Regular rate/rhythm, Normal S1 S2 Gastrointestinal: Normal bowel sounds, Soft and benign, Non-distended, No tenderness Musculoskeletal: No clubbing, No swelling, No tenderness Neurological: Abnormal gait, Abnormal speech (Aphasic-Broca's), Abnormal strength (Left-sided weakness), Abnormal cranial nerve function Lymphatics: No axilla or inguinal lymphadenopathy - Studies Medications List Reviewed: Yes Assessment & Plan - Problems (Diagnosis) (1) Acute left arterial ischemic stroke, ICA (internal carotid artery) Current Visit: Yes Status: Acute (2) Broca's aphasia Current Visit: Yes Status: Acute (3) Dysphagia Current Visit: Yes Status: Acute - Plan Plan of care as mentioned below: 1. MRI of the brain-left SHARI/MCA infarct 2. Antiplatelet and statin therapy 3. Lipid profile reviewed 4. Physical therapy and speech therapy consultation 5. DVT prophylaxis 6. Neurochecks every 4 hours 7. Reassess stroke scale 8. GI and DVT prophylaxis Discharge Plan: Home Plan to discharge in: Greater than 2 days - Advance Directives Does patient have a Living Will: No Does patient have a Durable POA for Healthcare: No - Code Status/Comfort Care Code Status Assessed: Yes Code Status: Full Code Critical Care: No Time Spent Managing PTS Care (In Minutes): 45
--- NOTE | 2021-07-22 18:03 | P.PN ---
Date of Service: 07/21/21 Subjective Blood pressure still elevated. IV blood pressure medications for better control. Review of Systems 10-point ROS is otherwise unremarkable Physical Examination - Vital Signs Reviewed - Physical Exam General: Aphasia Respiratory: Clear to auscultation bilaterally, Normal air movement Cardiovascular: Regular rate/rhythm, Normal S1 S2 Gastrointestinal: Normal bowel sounds, Soft and benign, Non-distended, No tenderness Musculoskeletal: No clubbing, No swelling, No tenderness Neurological: Abnormal gait, Abnormal speech (Aphasic-Broca's), Abnormal strength (Left-sided weakness), Abnormal cranial nerve function Lymphatics: No axilla or inguinal lymphadenopathy - Studies Medications List Reviewed: Yes Assessment & Plan - Problems (Diagnosis) (1) Acute left arterial ischemic stroke, ICA (internal carotid artery) Current Visit: Yes Status: Acute (2) Broca's aphasia Current Visit: Yes Status: Acute (3) Dysphagia Current Visit: Yes Status: Acute - Plan Plan of care as mentioned below: 1. MRI of the brain-left SHARI/MCA infarct 2. Antiplatelet and statin therapy 3. Lipid profile reviewed 4. Physical therapy and speech therapy consultation 5. DVT prophylaxis 6. Neurochecks every 4 hours 7. Reassess stroke scale 8. GI and DVT prophylaxis Discharge Plan: Home Plan to discharge in: Greater than 2 days - Advance Directives Does patient have a Living Will: No Does patient have a Durable POA for Healthcare: No - Code Status/Comfort Care Code Status Assessed: Yes Code Status: Full Code Critical Care: No Time Spent Managing PTS Care (In Minutes): 45
[2021-07-22] MEDS: ATORVASTATIN 80 MG TAB PO SCH (20:46)
[2021-07-23] MEDS: METOPROLOL TAR 50 MG TAB PO SCH (04:43)
[2021-07-23] MEDS: INSULIN -REGULAR HUMAN 50 UNIT/0.5 ML ML SQ SCH ×4 (07:30→20:49)
[2021-07-23] MEDS: NA CHLORIDE 0.9% 1,000 ML IV SCH ×2 (07:40→21:00)
--- NOTE | 2021-07-23 08:23 | RAD REPORT ---
EXAM DESCRIPTION: CT - Head Brain Wo Cont - 07/23/2021 7:22 am CLINICAL HISTORY: AMS Headache, CVA COMPARISON: Head Brain Wo Cont dated 07/19/2021; MRA Head Wo Cont dated 07/20/2021; Brain Wo Cont dated 07/20/2021 TECHNIQUE: All CT scans are performed using dose optimization technique as appropriate and may inclu de automated exposure control or mA/KV adjustment according to patient size. FINDINGS: Large area of diminished density is seen in the left frontal lobe compatible with CVA.This correlates with recent MRI findings dated 07/20/2021.No evidence of hemorrhage or hemorrhagic conver donn is seen. The paranasal sinuses and mastoids are clear. The calvarium is intact. IMPRESSION: Large area of left frontal lobe CVA hypodensity is present without hemorrhage or hemorrh agic conversion. No midline shift is seen.
[2021-07-23] MEDS: ENOXAPARIN 40 MG/0.4 ML SQ SCH (09:00)
[2021-07-23] MEDS: CLOPIDOGREL 75 MG TABLET PO SCH (09:00)
[2021-07-23] MEDS: ASPIRIN EC 81 MG TAB PO SCH (09:00)
[2021-07-23] MEDS: AMLODIPINE 10 MG TAB PO SCH (09:00)
[2021-07-23] MEDS: METOPROLOL TARTRATE 5 MG/5 ML INJ IV SCH ×3 (09:58→20:44)
[2021-07-23] MEDS ORDERED: NA CHLORIDE 0.9% 1,000 ML ONE (11:15)
[2021-07-23] MEDS ORDERED: Phenylephrine HCl 10 MG/ML 1 ML VIAL ONE (11:17)
[2021-07-23] MEDS ORDERED: LIDOCAINE 1% MPF 5 ML VIAL ONE (11:17)
[2021-07-23] MEDS ORDERED: propofoL 200 MG/20 ML VIAL IV ONE (11:17)
[2021-07-23] MEDS ORDERED: ETOMIDATE 20 MG/10 ML VIAL IV ONE (11:17)
[2021-07-23] MEDS ORDERED: NS 0.9% VIAL 0 ML ONE (11:17)
[2021-07-23] MEDS ORDERED: CEFAZOLIN SODIUM 1 GM/VIAL ONE (11:19)
[2021-07-23] MEDS ORDERED: ESMOLOL HCL 10 ML IV ONE (11:26)
--- NOTE | 2021-07-23 11:54 | ENDO RPT ---
[address], [address] EGD WITH PEG PROCEDURE REPORT EXAM DATE: 07/23/2021 PATIENT NAME: Adore Padilla MR #: [id number] BIRTHDATE: 1945 ATTENDING: Frankie Nair DR STATUS: inpatient - 7 PAINT AND TABLE EDGER: Aida De Santiago RN INDICATIONS: The patient is a 76 yr old Female here for an EGD with PEG due to malnutrition and dysphagia PROCEDURE PERFORMED: EGD with biopsy for H. pylori EGD-PEG MEDICATIONS: Per Anesthesia. TOPICAL ANESTHETIC: none CONSENT: The patient understands the risks and benefits of the procedure and understands that these risks include, but are not limited to: sedation, allergic reaction, infection, perforation and/or bleeding. Alternative means of evaluation and treatment include, among others: physical exam, x-rays, and/or surgical intervention. The patient elects to proceed with this endoscopic procedure. DESCRIPTION OF PROCEDURE: During intra-op preparation period all mechanical medical equipment was checked for proper function. Hand hygiene and appropriate measures for infection prevention was taken. After the risks, benefits and alternatives of the procedure were thoroughly explained, Informed consent was verified, confirmed and timeout was successfully executed by the treatment team. The patient was anesthetized with topical anesthesia and the EG-[id number] ([id number]) endoscope was introduced through the mouth and advanced to the second portion of the duodenum. The instrument was slowly withdrawn as the mucosa was fully examined. Bile reflux was found in the antrum. A biopsy for H. pylori was taken. Mild gastritis was found in the antrum. The stomach was then inflated with air, and by a combination of transillumination and manual palpation, the site for the gastrostomy tube placement was selected and marked on the anterior abdominal wall. The skin of the anterior abdomen was surgically prepped and draped with sterile towels. Utilizing strict sterile technique, the selected site was then anesthetized with 1% xylocaine by injection into the skin and subcutaneous tissue. A 1 cm incision was made through the skin and subcutaneous tissue, and the needle/cannula assembly was then passed through the abdominal wall and through the anterior wall of the stomach, maintaining visualization with the endoscope. A snare device previously placed through the instrument channel was then opened and placed around the cannula, the needle was removed, and the insertion wire was passed through the cannula and into the stomach lumen. The snare was then loosened from the cannula, and repositioned to snare the insertion wire. The snare was then pulled up to the endoscope distal tip, and the scope was then withdrawn bringing with it the snare and insertion wire. The insertion wire was then released from the snare, and then loop-attached to the PEG PULL gastrostomy tube. Using the pull technique, the G-tube was then pulled into place by traction on the insertion wire at the abdominal wall end. The G-tube insertion site was then cleansed once again, and the external bolster was placed over the tube to secure it to the abdominal wall. A sterile dressing was then applied, and the procedure terminated. Retroflexed views revealed a small hiatal hernia. The gastroscope was then slowly withdrawn and removed. ADVERSE EVENT: There were no complications. IMPRESSIONS: 1. Bile reflux was found in the antrum 2. Mild gastritis was found in the antrum RECOMMENDATIONS: 1. anti-reflux regimen 2. acid suppression therapy 3. await biopsy results 4. avoid NSAIDS 5. begin feeding tomorrow 6. follow PEG suggestions 7. follow-up of helicobacter pylori status, treat if indicated REPEAT EXAM: Frankie Nair DR eSigned: Frankie Nair DR 07/23/2021 11:54 AM cc: CPT CODES: ICD9 CODES: PATIENT NAME: Adore Padilla MR#: [id number]
[2021-07-23] MEDS ORDERED: HYDRALAZINE HCL 20 MG/ML VIAL ONE (12:08)
[2021-07-23] MEDS: LABETALOL 20 MG/4ML SYRINGE IV ONE ×2 (12:19→12:31)
--- NOTE | 2021-07-23 13:46 | CON ---
Date of Consultation: 07/23/2021 Brief History Of Present Illness: The patient is a 76-year-old black female with a history of hypert ension, hyperlipidemia, who presented to the hospital on 07/19/2021 with hypertensive emergency and a ltered mental status. She was brought to the hospital at that point with the significant change in h er mental status with nonverbal communication and some hemiparesis, but predominantly change in her b ehavior. She was admitted in the hospital on that day and she has had multiple imaging of her brain, which have shown an approximately 8 cm acute left anterior cerebral infarct. She has been having de creased ability to take p.o. intake as well. This has not improved during her convalescence here at the hospital and as such, I am consulted for PEG tube placement. The patient is nonverbal and as suc h, I have discussed the patient's care with the family in the room as well as her son who is her surr ogate for medical decision making. Past Medical History: Significant for hypertension, hyperlipidemia, radiculopathy in the right leg. Past Surgical History: Denied. Social History: She has no history of smoking, alcohol, or recreational drug use. Review of Systems: Ten-point review of systems unable to obtain. Home Medications: Include Norvasc, Celexa, lovastatin, meloxicam, Lopressor, hydrochlorothiazide, co deine, Spiriva. Allergies: TO LISINOPRIL. SHE HAD RECEIVED COVID VACCINATION AND IS CURRENTLY FULLY VACCINATED WITH 2 COVID INJECTIONS. Physical Examination: Vital Signs: At the time of my examination; her BMI of 30, her heart rate was 98, blood pressure 173 /71, SpO2 100% on room air. Temperature was 99.0. General: She is awake and alert, but nonverbal. She follows some commands, but not all commands and appears to be easily distracted. HEENT: She is otherwise normocephalic. Her sclerae were slightly injected. Her oropharynx is clear with some dry membranes. Neck: Supple without JVD. Chest: Normal expansion and excursion. Cardiovascular: Regular rate and rhythm. Pulmonary: Clear to auscultation bilaterally. Abdomen: Soft, nontender, nondistended. She is obese. No rebound. No guarding. No focal peritoni tis. Extremities: No clubbing, cyanosis, or edema. Skin: Warm and dry. Laboratory Data: Revealed a white blood cell count on 07/20 at 8.0, hemoglobin was 10.6, hematocrit 34.0, platelet count was 278. Her chemistry showed her sodium on 07/20 was 138, potassium 3.8, chlor sherri 105, carbon dioxide 27, BUN 18, creatinine 0.9, glucose was 134. She had imaging performed as de scribed, the latest on 07/23/2021, which was a head CT, officially read as large area of left frontal lobe, CVA, hyperdensities present without hemorrhage or hemorrhagic conversion. No midline shift is seen. Assessment And Plan: This is a 76-year-old female, who comes in with signs and symptoms of an acute anterior left cerebral infarct with concomitant dysphagia and decreased p.o. intake significantly. I have explained to the family members, her son as well and to the patient the risks, benefits, and al ternatives of esophagogastroduodenoscopy with percutaneous endoscopic gastrostomy tube placement incl uding, but not limited to bleeding, infection, damage to surrounding tissues, need for further operat ion and procedures, injury to intestines with perforation possibility, and other unforeseen complicat ions related to anesthesia. The patient's family agrees to proceed as indicated. Thank you for this interesting consult. JOSE CARLOS/ROHINI Voice ID: [id number] Report ID: [id number]
--- NOTE | 2021-07-23 15:48 | P.PN ---
Date of Service: 07/23/21 Subjective Patient status post PEG tube placement. Following commands. Start feedings later today. Continue working with speech therapy and physical therapy. Start controlling blood pressure a little more strictly at this time. Also allow for some mild permissive hypertension. Review of Systems 10-point ROS is otherwise unremarkable Physical Examination - Vital Signs Reviewed - Physical Exam General: Aphasia Respiratory: Clear to auscultation bilaterally, Normal air movement Cardiovascular: Regular rate/rhythm, Normal S1 S2 Gastrointestinal: Normal bowel sounds, Soft and benign, Non-distended, No tenderness Musculoskeletal: No clubbing, No swelling, No tenderness Neurological: Abnormal gait, Abnormal speech (Aphasic-Broca's), Abnormal strength (Left-sided weakness), Abnormal cranial nerve function Lymphatics: No axilla or inguinal lymphadenopathy - Studies Medications List Reviewed: Yes Assessment & Plan - Problems (Diagnosis) (1) Acute left arterial ischemic stroke, ICA (internal carotid artery) Current Visit: Yes Status: Acute (2) Broca's aphasia Current Visit: Yes Status: Acute (3) Dysphagia Current Visit: Yes Status: Acute - Plan Plan of care as mentioned below: 1. MRI of the brain-left SHARI/MCA infarct 2. Antiplatelet and statin therapy 3. Lipid profile reviewed 4. Physical therapy and speech therapy consultation appreciated 5. DVT prophylaxis 6. Neurochecks every 4 hours 7. Reassess stroke scale 8. Status post PEG tube placement 9. GI and DVT prophylaxis Discharge Plan: Home Plan to discharge in: Greater than 2 days - Advance Directives Does patient have a Living Will: No Does patient have a Durable POA for Healthcare: No - Code Status/Comfort Care Code Status Assessed: Yes Code Status: Full Code Critical Care: No Time Spent Managing PTS Care (In Minutes): 45
[2021-07-23] MEDS: METOPROLOL TAR 50 MG TAB FT SCH (17:11)
[2021-07-23] MEDS: MORPHINE 2 MG/ML SYR IV PRN ×2 (17:24→22:25)
[2021-07-23] MEDS: ATORVASTATIN 80 MG TAB FT SCH (21:00)
[2021-07-23] MEDS: GABAPENTIN 600 MG FT SCH (21:00)
[2021-07-23] MEDS: FAMOTIDINE 20 MG/2 ML VIAL IV SCH (22:24)
[2021-07-24] MEDS: HYDRALAZINE HCL 20 MG/ML VIAL IV PRN ×2 (00:58→06:31)
[2021-07-24] MEDS: METOPROLOL TARTRATE 5 MG/5 ML INJ IV SCH ×3 (03:43→16:00)
[2021-07-24] MEDS: NA CHLORIDE 0.9% 1,000 ML IV SCH ×2 (03:50→16:52)
[2021-07-24] MEDS: METOPROLOL TAR 50 MG TAB FT SCH ×2 (06:00→16:50)
[2021-07-24 07:14] LABS: Albumin 2.5 g/dL (3.4-5.0); Bilirubin Total 0.4 mg/dL (0.2-1.0); Potassium 3.9 mmol/L (3.5-5.1); Protein, Total 6.6 g/dL (6.4-8.2)
[2021-07-24 07:18] LABS: Absolute Lymphocytes (CBC) 0.7 K/uL (0.7-4.9); Hematocrit 36.2 % (36.0-45.0); Lymphocytes % 7.4 % (15.3-44.8); MPV 8.1 fL (7.6-11.3); RBC Red Blood Cell Count 4.77 M/uL (3.86-4.86)
[2021-07-24] MEDS: INSULIN -REGULAR HUMAN 50 UNIT/0.5 ML ML SQ SCH ×4 (07:30→21:00)
[2021-07-24] MEDS: GABAPENTIN 600 MG FT SCH ×2 (09:00→21:00)
[2021-07-24] MEDS ORDERED: AMLODIPINE 5 MG TAB PO SCH (09:00)
[2021-07-24] MEDS ORDERED: HOME MED 1 EA UNK (Citalopram Hydrobromide [Celexa] 20 MG Tablet) FT SCH (09:00)
[2021-07-24] MEDS ORDERED: AMLODIPINE 10 MG TAB FT SCH (09:00)
[2021-07-24] MEDS ORDERED: dexAMETHasone 10 MG/ML VIAL ONE (09:20)
[2021-07-24] MEDS ORDERED: ONDANSETRON 4 MG/2 ML VIAL ONE (09:22)
[2021-07-24] MEDS: ENOXAPARIN 40 MG/0.4 ML SQ SCH (09:32)
[2021-07-24] MEDS: ASPIRIN 325 MG TAB FT SCH (09:33)
[2021-07-24] MEDS: CITALOPRAM 10 MG TABLET FT SCH (09:34)
[2021-07-24] MEDS: MORPHINE 2 MG/ML SYR IV PRN ×3 (09:34→22:58)
[2021-07-24] MEDS: FAMOTIDINE 20 MG/2 ML VIAL IV SCH ×2 (09:35→22:54)
[2021-07-24] MEDS: CLOPIDOGREL 75 MG TABLET FT SCH (09:36)
[2021-07-24] MEDS: JEVITY 1.5 CAL LIQUID 1,000 ML BOT FT SCH ×3 (12:36→22:48)
--- NOTE | 2021-07-24 13:53 | P.PN ---
Subjective Date of Service: 07/24/21 Chief Complaint: AMS, hypertensive emergency Subjective: Improving (Patient has no complaints) Physical Examination - Vital Signs Temperature: 97.9 F Blood Pressure: 128/80 Pulse: 94 Respirations: 18 Pulse Ox (%): 98 - Physical Exam General: Alert, In no apparent distress, Cooperative Gastrointestinal: Other (soft, non-tender, PEG in place) - Studies Medications List Reviewed: Yes Assessment And Plan - Plan - tube feeding per nutrition recs - continue medical management
--- NOTE | 2021-07-24 20:16 | P.PN ---
Date of Service: 07/24/21 Subjective Pt slowly improving; s/p PEG tube; waiting for placement Review of Systems 10-point ROS is otherwise unremarkable Physical Examination - Vital Signs Reviewed - Physical Exam General: Aphasia Respiratory: Clear to auscultation bilaterally, Normal air movement Cardiovascular: Regular rate/rhythm, Normal S1 S2 Gastrointestinal: Normal bowel sounds, Soft and benign, Non-distended, No tenderness; PEG tube Musculoskeletal: No clubbing, No swelling, No tenderness Neurological: Abnormal gait, Abnormal speech (Aphasic-Broca's), Abnormal strength (Left-sided weakness), Abnormal cranial nerve function Lymphatics: No axilla or inguinal lymphadenopathy - Studies Medications List Reviewed: Yes Assessment & Plan - Problems (Diagnosis) (1) Acute left arterial ischemic stroke, ICA (internal carotid artery) Current Visit: Yes Status: Acute (2) Broca's aphasia Current Visit: Yes Status: Acute (3) Dysphagia s/p PEG tube Current Visit: Yes Status: Acute - Plan Plan of care as mentioned below: 1. MRI of the brain-left SHARI/MCA infarct 2. Antiplatelet and statin therapy 3. Lipid profile reviewed 4. Physical therapy and speech therapy consultation appreciated 5. DVT prophylaxis 6. Neurochecks every 4 hours 7. Reassess stroke scale 8. Status post PEG tube placement 9. Awaiting placement; 10. GI and DVT prophylaxis Discharge Plan: Home Plan to discharge in: Greater than 2 days - Advance Directives Does patient have a Living Will: No Does patient have a Durable POA for Healthcare: No - Code Status/Comfort Care Code Status Assessed: Yes Code Status: Full Code Critical Care: No Time Spent Managing PTS Care (In Minutes): 45
[2021-07-24] MEDS: ATORVASTATIN 80 MG TAB FT SCH (22:48)
[2021-07-25 06:43] LABS: Absolute Lymphocytes (CBC) 0.8 K/uL (0.7-4.9); Hematocrit 30.8 % (36.0-45.0); Lymphocytes % 7.4 % (15.3-44.8); MPV 7.9 fL (7.6-11.3); RBC Red Blood Cell Count 4.05 M/uL (3.86-4.86)
[2021-07-25] MEDS: METOPROLOL TAR 50 MG TAB FT SCH ×2 (06:53→18:02)
[2021-07-25] MEDS: MORPHINE 2 MG/ML SYR IV PRN ×2 (06:53→23:28)
[2021-07-25 06:59] LABS: Magnesium 2.3 mg/dL (1.8-2.4); Potassium 3.9 mmol/L (3.5-5.1)
[2021-07-25] MEDS: INSULIN -REGULAR HUMAN 50 UNIT/0.5 ML ML SQ SCH ×4 (07:30→21:00)
[2021-07-25] MEDS: FAMOTIDINE 20 MG/2 ML VIAL IV SCH ×2 (09:00→23:12)
[2021-07-25] MEDS: GABAPENTIN 600 MG FT SCH ×2 (09:00→21:00)
[2021-07-25] MEDS ORDERED: AMLODIPINE 10 MG TAB FT SCH (09:00)
[2021-07-25] MEDS: JEVITY 1.5 CAL LIQUID 1,000 ML BOT FT SCH ×4 (09:00→23:11)
[2021-07-25] MEDS: ASPIRIN 325 MG TAB FT SCH (09:00)
[2021-07-25] MEDS: CITALOPRAM 10 MG TABLET FT SCH (09:15)
[2021-07-25] MEDS: ENOXAPARIN 40 MG/0.4 ML SQ SCH (09:15)
[2021-07-25] MEDS: CLOPIDOGREL 75 MG TABLET FT SCH (09:16)
[2021-07-25] MEDS: GABAPENTIN 300 MG CAP FT SCH (12:46)
--- NOTE | 2021-07-25 22:48 | P.PN ---
Date of Service: 07/25/21 Subjective More awake and alert and following commands; however, patient not really interacting much. Nurses state that she does follow their commands at times. Her blood pressure has been elevated. Review of Systems 10-point ROS is otherwise unremarkable Physical Examination - Vital Signs Reviewed - Physical Exam General: Aphasia Respiratory: Clear to auscultation bilaterally, Normal air movement Cardiovascular: Regular rate/rhythm, Normal S1 S2 Gastrointestinal: Normal bowel sounds, Soft and benign, Non-distended, No tenderness; PEG tube Musculoskeletal: No clubbing, No swelling, No tenderness Neurological: Abnormal gait, Abnormal speech (Aphasic-Broca's), Abnormal strength (Left-sided weakness), Abnormal cranial nerve function Lymphatics: No axilla or inguinal lymphadenopathy - Studies Medications List Reviewed: Yes Assessment & Plan - Problems (Diagnosis) (1) Acute left arterial ischemic stroke, ICA (internal carotid artery) Current Visit: Yes Status: Acute (2) Broca's aphasia Current Visit: Yes Status: Acute (3) Dysphagia s/p PEG tube Current Visit: Yes Status: Acute - Plan Plan of care as mentioned below: 1. MRI of the brain-left SHARI/MCA infarct; patient with Broca's aphasia 2. Continue with antiplatelet and statin therapy 3. Working on placement in [place] 4. Physical therapy and speech therapy consultation appreciated 5. DVT prophylaxis 6. Neurochecks every 4 hours 7. Reassess stroke scale 8. Status post PEG tube placement 9. GI and DVT prophylaxis Discharge Plan: Home Plan to discharge in: Greater than 2 days - Advance Directives Does patient have a Living Will: No Does patient have a Durable POA for Healthcare: No - Code Status/Comfort Care Code Status Assessed: Yes Code Status: Full Code Critical Care: No Time Spent Managing PTS Care (In Minutes): 45
[2021-07-25] MEDS: ATORVASTATIN 80 MG TAB FT SCH (23:11)
[2021-07-26 06:38] LABS: Absolute Lymphocytes (CBC) 1.1 K/uL (0.7-4.9); Lymphocytes % 10.2 % (15.3-44.8); MPV 7.9 fL (7.6-11.3); RBC Red Blood Cell Count 3.96 M/uL (3.86-4.86)
[2021-07-26 06:48] LABS: BUN Blood Urea Nitrogen 22 mg/dL (7-18); Bicarbonate 28 mmol/L (21-32); Glucose Level 114 mg/dL (74-106); Magnesium 2.2 mg/dL (1.8-2.4); NT PRO-BNP 686 pg/mL (<450); Sodium Level 140 mmol/L (136-145)
[2021-07-26] MEDS: METOPROLOL TAR 50 MG TAB FT SCH ×2 (06:50→17:39)
[2021-07-26] MEDS: LOSARTAN POTASSIUM 50 MG TABLET PO SCH ×3 (06:51→21:53)
[2021-07-26] MEDS: INSULIN -REGULAR HUMAN 50 UNIT/0.5 ML ML SQ SCH ×4 (07:30→21:00)
[2021-07-26] MEDS ORDERED: MAGNESIUM SULFATE 1 gm IVPB 1 GM/100 ML BAG IV ONE (09:00)
[2021-07-26] MEDS: FAMOTIDINE 20 MG/2 ML VIAL IV SCH ×2 (09:42→21:52)
[2021-07-26] MEDS: GABAPENTIN 300 MG CAP FT SCH (09:42)
[2021-07-26] MEDS: CITALOPRAM 10 MG TABLET FT SCH (09:42)
[2021-07-26] MEDS: AMLODIPINE 10 MG TAB FT SCH (09:42)
[2021-07-26] MEDS: CLOPIDOGREL 75 MG TABLET FT SCH (09:42)
[2021-07-26] MEDS: ASPIRIN 325 MG TAB FT SCH (09:43)
[2021-07-26] MEDS: ENOXAPARIN 40 MG/0.4 ML SQ SCH (09:43)
[2021-07-26] MEDS: JEVITY 1.5 CAL LIQUID 1,000 ML BOT FT SCH ×4 (09:43→21:59)
--- NOTE | 2021-07-26 11:56 | P.PN ---
Date of Service: 07/26/21 Subjective Spoke with patient's son. Updated him on arrangements for fdc facility arrangements. Her blood pressure has been elevated so we adjusted patient's blood pressure medications. Hopefully, will get better control. Tolerating tube feedings. Review of Systems 10-point ROS is otherwise unremarkable Physical Examination - Vital Signs Reviewed - Physical Exam General: Aphasia Respiratory: Clear to auscultation bilaterally, Normal air movement Cardiovascular: Regular rate/rhythm, Normal S1 S2 Gastrointestinal: Normal bowel sounds, Soft and benign, Non-distended, No tenderness; PEG tube Musculoskeletal: No clubbing, No swelling, No tenderness Neurological: Abnormal gait, Abnormal speech (Aphasic-Broca's), Abnormal strength (Left-sided weakness), Abnormal cranial nerve function Lymphatics: No axilla or inguinal lymphadenopathy - Studies Medications List Reviewed: Yes Assessment & Plan - Problems (Diagnosis) (1) Acute left arterial ischemic stroke, ICA (internal carotid artery) Current Visit: Yes Status: Acute (2) Broca's aphasia Current Visit: Yes Status: Acute (3) Dysphagia s/p PEG tube Current Visit: Yes Status: Acute - Plan Plan of care as mentioned below: 1. MRI of the brain-left MCA infarct; patient with Broca's aphasia 2. Continue with antiplatelet and statin therapy 3. Working on placement in [place] 4. Physical therapy and speech therapy consultation appreciated 5. DVT prophylaxis 6. Neurochecks every 4 hours 7. Reassess stroke scale 8. Status post PEG tube placement 9. GI and DVT prophylaxis Discharge Plan: Home Plan to discharge in: Greater than 2 days - Advance Directives Does patient have a Living Will: No Does patient have a Durable POA for Healthcare: No - Code Status/Comfort Care Code Status Assessed: Yes Code Status: Full Code Critical Care: No Time Spent Managing PTS Care (In Minutes): 45
[2021-07-26] MEDS: GABAPENTIN 600 MG FT SCH (21:00)
[2021-07-26] MEDS: ATORVASTATIN 80 MG TAB FT SCH (21:53)
[2021-07-27] MEDS: HYDRALAZINE HCL 20 MG/ML VIAL IV PRN (01:30)
--- NOTE | 2021-07-27 06:02 | P.PN ---
Date of Service: 07/27/21 Subjective: No acute events overnight, patient without any new complaints this morning BP better controlled yesterday evening ROS: 10 point ROS as noted above, otherwise negative Physical exam GEN: Alert, oriented, NAD HEENT: Normal conjunctiva, sclera anicteric CV: Regular rate and rhythm, no edema Pulm: Nonlabored respirations on room air, clear to auscultation ABD: Soft, nontender, nondistended, PEG tube in place Neuro: aphasic speech (Broca's), L sided weakness Problem List Acute MCA CVA Broca's aphasia Dysphagia s/p PEG tube MRI of: Acute infarct of left MCA territory, patient clinically with Broca's a phasia Continue with antiplatelet and statin therapy Physical therapy and speech therapy following Patient with dysphagia, PEG tube placed banking services advisor working on placement in [place] for the patient Pending insurance approval Continue to monitor blood pressure for better control VTE: lovenox Code: full Dispo: SNF in 1-2 days, pending approval Time Spent Managing Pts Care (In Minutes): 35
[2021-07-27 06:26] LABS: Magnesium 2.1 mg/dL (1.8-2.4); Phosphorus 2.2 mg/dL (2.5-4.9); Potassium 4.1 mmol/L (3.5-5.1)
[2021-07-27] MEDS: METOPROLOL TAR 50 MG TAB FT SCH ×2 (07:10→17:44)
[2021-07-27] MEDS: INSULIN -REGULAR HUMAN 50 UNIT/0.5 ML ML SQ SCH ×4 (07:30→22:14)
[2021-07-27] MEDS: ASPIRIN 325 MG TAB FT SCH (09:00)
[2021-07-27] MEDS: JEVITY 1.5 CAL LIQUID 1,000 ML BOT FT SCH ×4 (09:00→21:56)
[2021-07-27] MEDS: ENOXAPARIN 40 MG/0.4 ML SQ SCH (09:53)
[2021-07-27] MEDS: CITALOPRAM 10 MG TABLET FT SCH (09:53)
[2021-07-27] MEDS: AMLODIPINE 10 MG TAB FT SCH (09:53)
[2021-07-27] MEDS: GABAPENTIN 300 MG CAP FT SCH ×2 (09:53→22:15)
[2021-07-27] MEDS: CLOPIDOGREL 75 MG TABLET FT SCH (09:54)
[2021-07-27] MEDS: FAMOTIDINE 20 MG/2 ML VIAL IV SCH ×2 (09:54→21:55)
[2021-07-27] MEDS: LOSARTAN POTASSIUM 50 MG TABLET PO SCH ×2 (09:54→21:55)
[2021-07-27] MEDS: GABAPENTIN 600 MG FT SCH (21:00)
[2021-07-27] MEDS: ATORVASTATIN 80 MG TAB FT SCH (21:54)
[2021-07-27] MEDS ORDERED: GABAPENTIN 300 MG CAP FT SCH (22:00)
--- NOTE | 2021-07-27 22:06 | CON ---
Consultation called because of the large stroke. History Of Present Illness: Ms. Padilla is a 76-year-old right-handed patient with h ypertension and dyslipidemia, who came to [facility] on 07/20/2021 with aphasia. She had di fficulty expressing herself, comprehending speech, and her son brought her into [facility]. Her initial imaging study did not reveal an ischemic stroke, that was a head CT scan that was done a t 12:07 p.m. on 07/19/2021. It did show what looked like chronic microvascular ischemic change in th e periventricular region with significant density . The patient's symptom onset could not be defined at the time she came in, perhaps a day or more and therefore, she was never felt to be a c andidate for tPA. Subsequently, a brain MRI on the , she came in on the , identified an 8 mm a cute infarction in the left frontal lobe in the area that would impair her ability to communicate pro ducing a significant expressive aphasia and since that time, the patient has remained to the point, w here she is alert, but is not able to express any meaningful communication, has difficulty following the simple commands, and she does have some right arm and leg weakness compared to the left side. Th ose findings have not changed significantly. Carotid artery ultrasound showed mild plaque in the car otid arteries without evidence of hemodynamically significant stenosis. A repeat head CT scan on the showed that the large left frontal stroke to be without hemorrhage or hemorrhagic conversion. MRA of her head showed diminished signal throughout the left anterior cerebral artery, which is in th e distribution of her stroke. Her blood work revealed elevated cholesterol of 233, LDL cholesterol e levated at 177, HDL cholesterol low at 31, cholesterol to HDL ratio of 7.52, vitamin B12 of 570. TSH was normal. Liver function studies unremarkable. Her kidney function normal. Urinalysis unremarka ble. Hemoglobin and hematocrit essentially unremarkable initially and she has had following surgical procedure dropped from 11 to 9.6, was 11 on the 19 of July and on , 9.6 hemoglobin. White blood cell count remains normal. Past Medical History: As noted. Past Surgical History: None. Allergies: LISINOPRIL. Family History: Noncontributory. Social History: No alcohol, tobacco, or IV drug use. Review of Systems: Not able to get a meaningful review of systems from the patient or chart review. Aside from mentione d, there was no recent fevers or chills, myalgias or arthralgias, rash, headache, or weight change. Medications: Norvasc 10 mg daily, citalopram 10 mg daily, losartan 10 mg daily, Mobic 15 mg daily, L opressor 100 mg daily, hydrochlorothiazide 25 mg daily, gabapentin 300 mg at bedtime and 600 mg in day. Physical Examination: Vital Signs: Blood pressure 133/67, pulse 83, respiratory rate 16 to 20, temperature 98.7, oxygen sa turation 98%. General: Ms. Padilla is resting comfortably. She easily. She is in no acute distress. HEENT: She appears normocephalic, atraumatic. Sclerae appear anicteric. Oropharynx is moist. Neck: Supple. Chest: Clear. Heart: Regular. Extremities: Show no edema, cyanosis, or clubbing. Some mild edema in the right upper and lower ext remity. Neurologic: She is alert to her name. She turns and tracks visually, but not communicating in a elke ningful way. Unable to identify the right or left hand. Unable to do a simple tasks such as a thumb s up sign or victory sign. On cranial nerve, no obvious focal deficits on 2 through 12 and motor exa mination in the right upper and lower extremity, significant weakness, although unable to really full y assess as the patient is not following commands to move the right arm entirely. On the left side, she moves without difficulty, that is upper and lower extremity. Unable to fully assess her sensatio n in the upper and lower extremities, but she appears to respond more on the left compared to right u pper and lower extremity to some noxious stimulation. Reflexes are depressed in upper and lower extr emities. Unable to assess her gait. She is a total assist from just going from supine to sit. She does require some correction of the trunk while she is sitting. She does appear to understand comman ds, but will not necessarily follow instructions when the therapist's director distribution determined that she is more suited for senior care and would not do well in an acute inpatient rehab. Assessment: Ms. Padilla is a 76-year-old patient with a large left frontal stroke including areas of her speech in addition for strength in the right lower extremity and some to the lesser ex tent in right upper extremity. She has dyslipidemia, hypertension, has a stroke risk factors, and mazariegos s not made significant improvements in the last week or more since hospitalization with her acute str taov. With evaluation by Therapy, determined that she is unable to withstand the 3 hours of therapy a nd follow instructions to do so for acute inpatient rehabilitation, and therefore, she is a candidate for senior care. Plan: 1.Refer to senior care. 2.Continue the aspirin. She is on 325 mg daily. Continue Norvasc, Lipitor, and Plavix along with _ and she has actually been cleared by Speech for swallowing and may have a heart-healthy t. 3.The patient may be discharged to senior care. SARAH/ROHINI Voice ID: [id number] Report ID: [id number]
[2021-07-27] MEDS: MORPHINE 2 MG/ML SYR IV PRN (22:26)
[2021-07-28] MEDS: HYDRALAZINE HCL 20 MG/ML VIAL IV PRN ×2 (00:29→15:07)
[2021-07-28 05:41] LABS: Hematocrit 29.1 % (36.0-45.0); MPV 7.8 fL (7.6-11.3); RBC Red Blood Cell Count 3.86 M/uL (3.86-4.86)
[2021-07-28] MEDS: METOPROLOL TAR 50 MG TAB FT SCH ×2 (05:52→17:08)
[2021-07-28 05:56] LABS: Potassium 4.1 mmol/L (3.5-5.1)
--- NOTE | 2021-07-28 06:07 | P.PN ---
Date of Service: 07/28/21 Subjective: No acute events overnight no new complaints, denies pain aphasic ROS: 10 point ROS as noted above, otherwise negative Physical exam GEN: Alert, NAD HEENT: Normal conjunctiva, sclera anicteric CV: Regular rate and rhythm, no edema Pulm: Nonlabored respirations on room air, clear to auscultation ABD: Soft, nontender, nondistended, PEG tube in place Neuro: aphasic speech, L sided weakness, nods yes/no to questions Problem List Acute MCA CVA Broca's aphasia Dysphagia s/p PEG tube MRI: Acute infarct of left MCA territory, patient clinically with Broca's aphasia Continue with antiplatelet and statin therapy Physical therapy and speech therapy following Patient with dysphagia, PEG tube placed, tolerating tube feeds account services manager working on placement in [place] for the patient Pending insurance approval HTN persists, somewhat improved overall; add HCTZ, monitor closely VTE: lovenox Code: full Dispo: SNF in 1-2 days, pending approval Time Spent Managing Pts Care (In Minutes): 35
[2021-07-28] MEDS: INSULIN -REGULAR HUMAN 50 UNIT/0.5 ML ML SQ SCH ×4 (07:30→21:25)
[2021-07-28] MEDS: ASPIRIN 325 MG TAB FT SCH (10:15)
[2021-07-28] MEDS: FAMOTIDINE 20 MG/2 ML VIAL IV SCH ×2 (10:16→21:02)
[2021-07-28] MEDS: AMLODIPINE 10 MG TAB FT SCH (10:16)
[2021-07-28] MEDS: CITALOPRAM 10 MG TABLET FT SCH (10:16)
[2021-07-28] MEDS: GABAPENTIN 300 MG CAP FT SCH ×2 (10:16→21:03)
[2021-07-28] MEDS: ENOXAPARIN 40 MG/0.4 ML SQ SCH (10:17)
[2021-07-28] MEDS: CLOPIDOGREL 75 MG TABLET FT SCH (10:17)
[2021-07-28] MEDS: LOSARTAN POTASSIUM 50 MG TABLET PO SCH ×2 (10:17→21:24)
[2021-07-28] MEDS: JEVITY 1.5 CAL LIQUID 1,000 ML BOT FT SCH ×4 (10:18→21:01)
[2021-07-28] MEDS: MORPHINE 2 MG/ML SYR IV PRN (13:26)
[2021-07-28] MEDS: hydroCHLOROthiazide 25 MG TAB FT SCH (16:30)
[2021-07-28] MEDS: ATORVASTATIN 80 MG TAB FT SCH (21:03)
[2021-07-29] MEDS: METOPROLOL TAR 50 MG TAB FT SCH ×2 (05:03→17:08)
[2021-07-29 06:01] LABS: Hematocrit 30.1 % (36.0-45.0); Lymphocytes % 9.5 % (15.3-44.8); MPV 8.3 fL (7.6-11.3); RBC Red Blood Cell Count 3.99 M/uL (3.86-4.86)
--- NOTE | 2021-07-29 06:10 | P.PN ---
Date of Service: 07/29/21 Subjective: No acute events overnight Blood pressure improved awaiting insurance approval ROS: 10 point ROS as noted above, otherwise negative Physical exam GEN: Alert, NAD HEENT: Normal conjunctiva, sclera anicteric CV: Regular rate and rhythm, no edema Pulm: Nonlabored respirations on room air, clear to auscultation ABD: Soft, nontender, nondistended, PEG tube in place Neuro: aphasic speech, L sided weakness, nods yes/no to questions Problem List Acute MCA CVA Broca's aphasia Dysphagia s/p PEG tube Hypertension hyperglycemia MRI: Acute infarct of left MCA territory, patient clinically with Broca's aphasia Continue with antiplatelet and statin therapy Physical therapy and speech therapy following Patient with dysphagia, PEG tube placed, tolerating tube feeds cargo and ramp services manager working on placement in [place] for the patient Pending insurance approval HTN persists, somewhat improved overall; add HCTZ, monitor closely VTE: lovenox Code: full Dispo: SNF in 1-2 days, pending approval Time Spent Managing Pts Care (In Minutes): 35
[2021-07-29 06:22] LABS: Potassium 4.4 mmol/L (3.5-5.1)
[2021-07-29] MEDS: INSULIN -REGULAR HUMAN 50 UNIT/0.5 ML ML SQ SCH ×4 (07:30→20:20)
[2021-07-29] MEDS: ASPIRIN 325 MG TAB FT SCH (09:00)
[2021-07-29] MEDS: AMLODIPINE 10 MG TAB FT SCH (09:07)
[2021-07-29] MEDS: hydroCHLOROthiazide 25 MG TAB FT SCH (09:07)
[2021-07-29] MEDS: ENOXAPARIN 40 MG/0.4 ML SQ SCH (09:07)
[2021-07-29] MEDS: LOSARTAN POTASSIUM 50 MG TABLET PO SCH ×2 (09:07→21:00)
[2021-07-29] MEDS: FAMOTIDINE 20 MG/2 ML VIAL IV SCH ×2 (09:08→21:53)
[2021-07-29] MEDS: GABAPENTIN 300 MG CAP FT SCH ×2 (09:08→21:54)
[2021-07-29] MEDS: CITALOPRAM 10 MG TABLET FT SCH (09:08)
[2021-07-29] MEDS: CLOPIDOGREL 75 MG TABLET FT SCH (09:08)
[2021-07-29] MEDS: JEVITY 1.5 CAL LIQUID 1,000 ML BOT FT SCH ×4 (09:09→21:54)
[2021-07-29] MEDS: MORPHINE 2 MG/ML SYR IV PRN (09:38)
[2021-07-29] MEDS: HYDRALAZINE HCL 20 MG/ML VIAL IV PRN (18:19)
[2021-07-29] MEDS: ATORVASTATIN 80 MG TAB FT SCH (21:53)
[2021-07-30] MEDS: METOPROLOL TAR 50 MG TAB FT SCH ×2 (05:26→17:05)
--- NOTE | 2021-07-30 06:12 | P.PN ---
Date of Service: 07/30/21 Subjective: No acute events overnight Patient denies pain (shakes head no) ROS: 10 point ROS as noted above, otherwise negative Physical exam GEN: Alert, NAD HEENT: Normal conjunctiva, sclera anicteric CV: Regular rate and rhythm, no edema Pulm: Nonlabored respirations on room air, clear to auscultation ABD: Soft, nontender, nondistended, PEG tube in place Neuro: aphasic speech, L sided weakness, nods yes/no to questions Problem List Acute MCA CVA Broca's aphasia Dysphagia s/p PEG tube Hypertension hyperglycemia MRI: Acute infarct of left MCA territory, patient clinically with Broca's aphasia Continue with antiplatelet and statin therapy Physical therapy and speech therapy following Patient with dysphagia, PEG tube placed, tolerating tube feeds developmental services worker working on placement in [place] for the patient Pending insurance approval HTN improving with addition of HCTZ stable VTE: lovenox Code: full Dispo: SNF, pending approval Time Spent Managing Pts Care (In Minutes): 35
[2021-07-30] MEDS: INSULIN -REGULAR HUMAN 50 UNIT/0.5 ML ML SQ SCH ×4 (07:30→21:45)
[2021-07-30] MEDS: AMLODIPINE 10 MG TAB FT SCH (08:36)
[2021-07-30] MEDS: CLOPIDOGREL 75 MG TABLET FT SCH (08:36)
[2021-07-30] MEDS: ASPIRIN 325 MG TAB FT SCH (08:36)
[2021-07-30] MEDS: LOSARTAN POTASSIUM 50 MG TABLET PO SCH ×2 (08:36→21:36)
[2021-07-30] MEDS: hydroCHLOROthiazide 25 MG TAB FT SCH (08:36)
[2021-07-30] MEDS: GABAPENTIN 300 MG CAP FT SCH ×2 (08:36→21:43)
[2021-07-30] MEDS: ENOXAPARIN 40 MG/0.4 ML SQ SCH (08:37)
[2021-07-30] MEDS: CITALOPRAM 10 MG TABLET FT SCH (08:37)
[2021-07-30] MEDS: FAMOTIDINE 20 MG TAB FT SCH ×2 (08:42→21:43)
[2021-07-30] MEDS: JEVITY 1.5 CAL LIQUID 1,000 ML BOT FT SCH ×4 (08:45→21:46)
[2021-07-30] MEDS: HYDRALAZINE HCL 20 MG/ML VIAL IV PRN (17:07)
[2021-07-30] MEDS: ATORVASTATIN 80 MG TAB FT SCH (21:48)
[2021-07-31 06:14] LABS: Potassium 4.2 mmol/L (3.5-5.1)
[2021-07-31] MEDS: METOPROLOL TAR 50 MG TAB FT SCH (06:24)
[2021-07-31] MEDS: INSULIN -REGULAR HUMAN 50 UNIT/0.5 ML ML SQ SCH ×2 (07:30→11:30)
[2021-07-31] MEDS ORDERED: FLUCONAZOLE 100 MG TAB FT SCH (09:00)
[2021-07-31] MEDS: FAMOTIDINE 20 MG TAB FT SCH (09:28)
[2021-07-31] MEDS: AMLODIPINE 10 MG TAB FT SCH (09:28)
[2021-07-31] MEDS: CLOPIDOGREL 75 MG TABLET FT SCH (09:28)
[2021-07-31] MEDS: ASPIRIN 325 MG TAB FT SCH (09:28)
[2021-07-31] MEDS: CITALOPRAM 10 MG TABLET FT SCH (09:29)
[2021-07-31] MEDS: LOSARTAN POTASSIUM 50 MG TABLET PO SCH (09:29)
[2021-07-31] MEDS: hydroCHLOROthiazide 25 MG TAB FT SCH (09:29)
[2021-07-31] MEDS: JEVITY 1.5 CAL LIQUID 1,000 ML BOT FT SCH (09:31)
[2021-07-31] MEDS: GABAPENTIN 300 MG CAP FT SCH (09:31)
[2021-07-31] MEDS: ENOXAPARIN 40 MG/0.4 ML SQ SCH (09:31)
[2021-07-31 10:55] VITALS: O2SAT 97
[2021-07-31 12:52] VITALS: BP 157/79; TEMP 98.4
--- NOTE | 2021-07-31 17:24 | P.DS ---
Admission Date: 07/20/21 Discharge Date: 07/31/21 Disposition: TRANSFER TO SNF - REHAB Discharge Condition: GOOD Reason for Admission: AMS, hypertensive emergency Consultations: Neurology General surgery Procedures: Problem List Acute MCA infarct Broca's aphasia Dysphagia s/p PEG tube Hypertension hyperglycemia Brief History of Present Illness: 76 yo F with HTN, HLD who presents with one day of AMS. Yesterday, her son brought her to the ED last night because he was speaking to her and she wasn't responding to him. He says she was still alert during this time, did not lose consciousness or fall. She was discharged home after a negative workup. He says she returned to baseline that evening, but was worse this morning. Son says she seems for fatigued than usual. At bedside, she is alert and oriented, able to answer questions. No focal neurological deficits. Denies fever, nausea, vomiting, urinary frequency. BP in the ED 193/97. She received amlodipine, toradol, IV fluids. She reports worsening chronic pain and tingling in her right hip. Her son says she has had more difficulty walking due to the pain. She has been seen by a neurologist for the pain in the past. Hospital Course: Patient was found to have an acute CVA. With left-sided weakness, aphasia and difficulty swallowing. Patient underwent PEG tube placement without any complications. She tolerated tube feeds. During hospitalization she was noted to be significantly hypertensive, was allowed for permissive hypertension early on, and now has gotten better blood pressure control with adjustment of her medications. 07/31, patient's tongue was noted to have white crusting over it, and she squeezed her hands indicate that she was having some slight tongue discomfort. Denied throat discomfort. She was started on Diflucan to be given through the feeding tube. Avoiding oral suspension due to aspiration risk. Continue physical therapy, speech therapy. Follow-up with neurology in 1 month Vital Signs/Physical Exam: Physical exam GEN: Alert, NAD HEENT: Normal conjunctiva, sclera anicteric, oropharynx: Leukoplakia CV: Regular rate and rhythm, no edema Pulm: Nonlabored respirations on room air, clear to auscultation ABD: Soft, nontender, nondistended, PEG tube in place Neuro: aphasic speech, L sided weakness, nods yes/no to questions, squeezes hand to yes/no questions Temp Pulse Resp BP Pulse Ox 98.4 F 83 18 157/79 H 98 07/31/21 12:00 07/31/21 12:00 07/31/21 12:00 07/31/21 12:00 07/31/21 12:00 Laboratory Data at Discharge: WBC 10.20 K/uL (4.3-10.9) 07/29/21 05:25 Hgb 9.8 g/dL (12.0-15.0) L 07/29/21 05:25 Hct 30.1 % (36.0-45.0) L 07/29/21 05:25 Plt Count 390 K/uL (152-406) 07/29/21 05:25 Sodium 134 mmol/L (136-145) L 07/31/21 05:37 Potassium 4.2 mmol/L (3.5-5.1) 07/31/21 05:37 BUN 23 mg/dL (7-18) H 07/31/21 05:37 Creatinine 0.81 mg/dL (0.55-1.3) 07/31/21 05:37 Glucose 180 mg/dL (74-106) H 07/31/21 05:37 Phosphorus 2.2 mg/dL (2.5-4.9) L 07/27/21 05:40 Magnesium 2.1 mg/dL (1.8-2.4) 07/27/21 05:40 Total Bilirubin 0.4 mg/dL (0.2-1.0) 07/24/21 06:29 AST 11 U/L (15-37) L 07/24/21 06:29 ALT 15 U/L (12-78) 07/24/21 06:29 Alkaline Phosphatase 79 U/L (45-117) 07/24/21 06:29 Triglycerides 125 mg/dL (<150) 07/20/21 05:21 Cholesterol 233 mg/dL (<200) H 07/20/21 05:21 HDL Cholesterol 31 mg/dL (40-60) L 07/20/21 05:21 Cholesterol/HDL Ratio 7.52 07/20/21 05:21 Home Medications: Amlodipine [Norvasc*] 10 mg PO DAILY 05/26/15 Citalopram Hydrobromide [Celexa] 20 mg PO DAILY 05/26/15 Gabapentin 300 mg PO BEDTIME 07/21/21 Gabapentin 600 mg PO DAILY 07/21/21 Aspirin Tab [Gurdeep Aspirin*] 325 mg FT DAILY tab 07/31/21 Atorvastatin Calcium [Lipitor] 80 mg FT BEDTIME tab 07/31/21 Clopidogrel Bisulfate [Plavix*] 75 mg FT DAILY tablet 07/31/21 Famotidine [Pepcid*] 20 mg FT BID tab 07/31/21 Fluconazole [Diflucan] 100 mg FT DAILY 14 Days #14 tablet 07/31/21 Jevity 1.5 Nico Liquid 237 ml FT QID bot 07/31/21 Losartan Potassium [Cozaar*] 50 mg PO BID tablet 07/31/21 Metoprolol Tartrate [Lopressor*] 100 mg FT BID 6AM 6PM tab 07/31/21 hydroCHLOROthiazide [Hydrodiuril*] 12.5 mg FT DAILY tab 07/31/21 New Medications: Fluconazole [Diflucan] 100 mg FT DAILY 14 Days #14 tablet Physician Discharge Instructions: Patient was found to have an acute CVA. With left-sided weakness, aphasia and difficulty swallowing. Patient underwent PEG tube placement without any complications. She tolerated tube feeds. During hospitalization she was noted to be significantly hypertensive, was allowed for permissive hypertension early on, and now has gotten better blood pressure control with adjustment of her medications. 07/31, patient's tongue was noted to have white crusting over it, and she squeezed her hands indicate that she was having some slight tongue discomfort. Denied throat discomfort. She was started on Diflucan to be given through the feeding tube. Avoiding oral suspension due to aspiration risk. Continue physical therapy, speech therapy. Follow-up with neurology in 1 month Diet: NPO Activity: Bedrest Followup: Yan Espinoza MD [ASSOCIATE-ACTIVE - CAN ADMIT] - NONE,NONE [Primary Care Provider] - Time spent managing pt's care (in minutes): 45
== END 2021-07-31 12:20 | DRG 65 ==
LOC: ER 11:19 → ERHOLD 14:54 → 2ND 16:16 → OBSVTOIN 07-20 14:11
PROVIDERS: ADMIT Internal Medicine; ATTEND Hospitalist
PROC: 0DB78ZX Excision of Stomach, Pylorus, Via Natural or Artificial Opening Endoscopic, Diagnostic (ICD-10-PCS; principal; 2021-07-23 10:00)
PROC: 0DH63UZ Insertion of Feeding Device into Stomach, Percutaneous Approach (ICD-10-PCS; 2021-07-23 10:00)
DX: I63.9 Cerebral infarction, unspecified (principal); I16.1 Hypertensive emergency; G81.94 Hemiplegia, unspecified affecting left nondominant side; I10 Essential (primary) hypertension; K29.70 Gastritis, unspecified, without bleeding; E78.5 Hyperlipidemia, unspecified; L89.212 Pressure ulcer of right hip, stage 2; R47.01 Aphasia; R73.9 Hyperglycemia, unspecified; R13.10 Dysphagia, unspecified; Z79.899 Other long term (current) drug therapy; Z88.8 Allergy status to other drugs, medicaments and biological substances; Z20.822 Contact with and (suspected) exposure to COVID-19; Z79.02 Long term (current) use of antithrombotics/antiplatelets
CPT/HCPCS: 36415; 70450; 70544; 70551; 74177; 80048; 80053; 80061; 80076; 81003; 81015; 82607; 82728; 82747; 82947; 83036; 83540; 83690; 83735; 83880; 84100; 84145; 84439; 84443; 84466; 84484; 85025; 85027; 88305; 88312; 92526; 92610; 93005; 93306; 93880; 96360; 96365; 96366; 96375; 97110; 97161; 97530; 99251; 99284; 99285; G0378; J0360; J0690; J1100; J1650; J2270; J2370; J2405; J2704; J3475; J7030; J7040; J7050; Q9967; U0003